=== PATIENT | female | born 1935 | race Caucasian/White ===

== ENCOUNTER 2017-08-02 08:47 | Emergency (ER) | payer MEDICARE, OTHER ==
[~2017-08-02] VITALS: Ht 152.4 cm; Wt 59.0 kg
[~2017-08-02 08:47] MED LIST: ANTIVERT25 MG PO; ASMANEX220 MC2 INH; AUGMENTIN 875-1 EACH PO; AZITHROMYCIN 2250 MG; BISOPROLOL FUMAR5 MG PO; CARAFATE 1 GM TA1 G1 PO; CARAFATE 11 GM/10 M1 PO; CEFUROXIME250 MG PO; CLOPIDOGREL75 MG PO; COLACE100 MG PO; DOXYCYCLINE 10100 MG PO; FENTANYL PA50 MCG/HR TOP; FENTANYL PATCH75 MCG TRANSDERM; FLONASE 0.05%50 MCG NASAL; IRON325 PO; KLOR-CON 1010 MEQ PO; LASIX 20 MG TAB20 MG PO; LEVALBUTER1.25 MG/0. INH; LEVAQUIN 250 M250 MG PO; LYRICA 50 MG50 MG PO; MEDROL4 MG PO; METHOTREXATE 22.5 MG PO; NEXIUM 24HR20 M1 PO; NITROGLYCERIN0.4 MG SUBLING; NYSTATIN 1100000 U/M SW&SWALLOW; OMEPRAZOLE 20 M20 M1 PO; ORAJEL PO; OXYCODONE HCL 55 MG PO; PANTOPRAZOLE SO40 M1 PO; PEPCID20 MG PO; PHENERGAN 25 MG25 M1 PO; PLAVIX 75 MG TA75 M1 PO; POTASSIUM20 PO; PREDNISONE 10 M10 MG PO; SYNTHROID100 MCG PO; TRAMADOL 50 MG50 MG PO; TRIAMTERENE-HC1 EAC1 PO; ULTRAM50 MG PO; VALIUM10 MG PO; VALIUM5 MG PO; VOLTAREN GEL 1100 G2 TOP; XOPENEX 0.63 MG/3 M1 INH; ZANTAC300 MG PO; ZETIA10 MG PO
[2017-08-02] MEDS ORDERED: TART CHERRY CA1 EACH PO (09:13)
[2017-08-02] MEDS ORDERED: COLACE100 MG PO (09:13)
[2017-08-02] MEDS ORDERED: FUSION CAPSULE1 EACH PO (09:14)
[2017-08-02] MEDS ORDERED: METHOTREXATE 22.5 MG PO (09:14)
[2017-08-02] MEDS ORDERED: LIDODERM1 EACH TRANSDERM (10:37)
[2017-08-02 10:54] VITALS: BP 138/50
== END 2017-08-02 10:55 | disposition home or self-care (01) ==
LOC: M.ERS 08:47
DX: G89.29 Other chronic pain (principal); S22.050A Wedge compression fracture of T5-T6 vertebra, initial encounter for closed fracture; M06.9 Rheumatoid arthritis, unspecified; K21.9 Gastro-esophageal reflux disease without esophagitis; M79.7 Fibromyalgia; J45.909 Unspecified asthma, uncomplicated; K59.09 Other constipation; W18.39XA Other fall on same level, initial encounter; Y93.89 Activity, other specified; Y92.89 Other specified places as the place of occurrence of the external cause; Y99.8 Other external cause status

== ENCOUNTER 2017-08-20 20:41 | Inpatient (IN) | payer MEDICARE, OTHER ==
[~2017-08-20] VITALS: Ht 152.4 cm; Wt 47.2 kg
[~2017-08-20 20:41] MED LIST changes: +FUSION CAPSULE1 EACH PO; +LIDODERM1 EACH TRANSDERM; +TART CHERRY CA1 EACH PO
[2017-08-20 21:09] VITALS: BP 171/72
[2017-08-20 21:15] LABS: HEMOGLOBIN 9.4 gm/dL (12.0-15.0); MCH 19.4 pg (26.0-34.0); MCHC 28.5 g/dL (28.0-37.0); MCV 68.1 fL (80.0-100.0); NUCLEATED RBCS 0 /100WBC; PLATELET COUNT* 384 thou/uL (150-400); RBC 4.85 mil/uL (4.20-5.00); RDW-CV 19.8 % (10.5-14.5); WBC 17.7 thou/uL (4.0-11.0)
[2017-08-20 21:17] LABS: ANION GAP 10 mmol/L (7-16); BUN 25 mg/dL (7-18); CALCIUM 8.5 mg/dL (8.5-10.1); CHLORIDE 102 mmol/L (98-107); CO2 26 mmol/L (21-32); CREATININE 1.4 mg/dL (0.6-1.3); GLUCOSE 164 mg/dL (70-99); POTASSIUM 4.5 mmol/L (3.5-5.1); SODIUM 138 mmol/L (136-145)
[2017-08-20 21:21] LABS: INR 1.1; PROTIME 10.7 Seconds (9.20-11.50)
[2017-08-20 21:22] LABS: POC CA IONIZED 4.4 mg/dL (4.5-5.3); POC CREATININE 1.1 mg/dL (0.6-1.3); POC HEMOGLOBIN 11.6 g/dL (12.0-17.0); POC POTASSIUM 4.2 mmol/L (3.5-4.9)
[2017-08-20 21:28] LABS: ALBUMIN 3.5 g/dL (3.4-5.0); ALKALINE PHOSPHATASE 65 U/L (46-116); NT-PRO BRAIN NAT PEPTIDE 1460 pg/mL (<300); SGOT 17 U/L (15-37); SGPT 22 U/L (30-65); TOTAL BILIRUBIN 0.3 mg/dL (<0.1-1.0); TOTAL PROTEIN 7.5 g/dL (6.4-8.2); TROPONIN-I LEVEL <0.06 ng/mL (<0.06)
[2017-08-20 21:37] LABS: ABSOLUTE LYMPHOCYTES 1.8 thou/uL (0.8-5.3); ABSOLUTE MONOCYTES 0.5 thou/uL (0.0-1.2); ABSOLUTE NEUTROPHILS 15.4 thou/uL (1.6-8.1)
[2017-08-20 21:38] LABS: ANISOCYTOSIS 1+; MICROCYTES 2+; PLATELET ESTIMATE ADEQUATE
[2017-08-20 21:39] LABS: HYPOCHROMASIA 2+
[2017-08-20 21:50] LABS: INFLUENZA A ANTIGEN None Detected (None Detect)
[2017-08-20 22:40] LABS: URINE BILIRUBIN NEGATIVE (Negative); URINE BLOOD TRACE (Negative); URINE CLARITY CLEAR; URINE COLOR YELLOW; URINE GLUCOSE-RANDOM NEGATIVE (Negative); URINE KETONES NEGATIVE (Negative); URINE LEUKOCYTES-REFLEX NEGATIVE (Negative); URINE NITRITE-REFLEX NEGATIVE (Negative); URINE PROTEIN NEGATIVE (Negative); URINE SPECIFIC GRAVITY <= 1.005 (1.005-1.030); URINE UROBILINOGEN 0.2 E.U./dl (0.2-1.0)
[2017-08-21] VITALS (8 sets, daily range): BP systolic 117–137; BP diastolic 55–69
[2017-08-21 04:35] LABS: ABSOLUTE BASOPHILS 0.1 thou/uL (0.0-0.2); ABSOLUTE LYMPHOCYTES 2.1 thou/uL (0.8-5.3); ABSOLUTE MONOCYTES 0.9 thou/uL (0.0-1.2); ABSOLUTE NEUTROPHILS 11.6 thou/uL (1.6-8.1); BASOPHILS 0.4 %; EOSINOPHILS 0.3 %; HEMOGLOBIN 8.4 gm/dL (12.0-15.0); LYMPHOCYTES 14.3 %; MCH 19.7 pg (26.0-34.0); MCHC 29.1 g/dL (28.0-37.0); MCV 67.8 fL (80.0-100.0); MPV 7.8 fl. (7.2-11.1); NUCLEATED RBCS 0 /100WBC; PLATELET COUNT* 344 thou/uL (150-400); RBC 4.28 mil/uL (4.20-5.00); RDW-CV 20.4 % (10.5-14.5); WBC 14.7 thou/uL (4.0-11.0)
[2017-08-21 04:54] LABS: ALBUMIN 3.1 g/dL (3.4-5.0); CALCIUM 8.2 mg/dL (8.5-10.1); CREATININE 1.1 mg/dL (0.6-1.3); POTASSIUM 4.1 mmol/L (3.5-5.1); TOTAL BILIRUBIN 0.2 mg/dL (<0.1-1.0); TOTAL PROTEIN 6.5 g/dL (6.4-8.2)
[2017-08-21 06:05] LABS: ANISOCYTOSIS 2+; HYPOCHROMASIA 2+
[2017-08-21 06:06] LABS: MACROCYTES Occasional; MICROCYTES 2+; POLYCHROMASIA Occasional
[2017-08-21 06:12] LABS: TARGET CELLS 1+; TEARDROPS 1+
[2017-08-21] MEDS ORDERED: VALIUM5 MG PO (08:43)
[2017-08-21] MEDS ORDERED: TYLENOL325 MG PO (08:44)
[2017-08-21] MEDS ORDERED: COLACE100 MG PO (09:13)
[2017-08-21 12:56] LABS: CALCIUM 8.2 mg/dL (8.5-10.1); CREATININE 1.1 mg/dL (0.6-1.3); POTASSIUM 3.7 mmol/L (3.5-5.1); TOTAL BILIRUBIN 0.2 mg/dL (<0.1-1.0); TOTAL PROTEIN 6.8 g/dL (6.4-8.2)
--- NOTE | 2017-08-21 15:54 | EKG ---
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 : 1935 Requested By: Sarah Mireles Order Number: [id number] MD: Julio C Love Measurements Intervals [place] Rate: 92 P: 25 MO: 152 QRS: -29 QRSD: 86 T: 31 QT: 369 QTc: 457 Interpretive Statements Sinus rhythm Low voltage, precordial leads RSR' in V1 or V2, right VCD LVH by voltage Anterior Q waves, possibly due to LVH Compared to ECG 05/21/2017 12:37:22 Low QRS voltage now present RSR' in V1 or V2 now present T-wave abnormality no longer present Electronically Signed On 08-21-2017 15:54:10 FUR STRETCHER by Julio C Love [email or web address] <ELECTRONICALLY SIGNED> By: Julio C Love MD, [facility] 08/21/17 1554 26 26 Julio C Love MD, [facility] /EPI
--- NOTE | 2017-08-21 16:57 | 2DMMODE ---
[place] [address] 2 D/M-MODE ECHOCARDIOGRAM Name: HOSSEIN REDD Room: [address] IN [facility]#: [id number] Admission: 08/20/17 Attend Phys: Macarena Alvarado, Discharge: Date of : 33 Date of Service: 08/21/17 1657 Report #: [id number] THIS REPORT FOR: //name// APPROVED REPORT Study performed: 08/21/2017 13:50:06 EXAM: Comprehensive 2D, Doppler, and color-flow Echocardiogram Patient Location: In-Patient Room #: [facility] Status: routine BSA: 1.57 HR: 70 bpm BP: 134/64 mmHg Rhythm: NSR Other Information Study Quality: Good Indications CVA/TIA Echo Enhancing Agent Indication: Rule out Shunt Agent(s) / Amount(s) Used: Agitated Saline 10 cc 2D Dimensions LVEF(%): 79.20 (>50%) IVSd: 9.97 (7-11mm) LVOT Diam: 17.25 (18-24mm) LVDd: 26.45 mm PWd: 9.20 (7-11mm) Ascending Ao: 27.52 (22-36mm) LVDs: 14.30 (25-40mm) Aortic Root: 33.57 mm Vora's LVEF: 79.20 % Volumes Left Atrial Volume (Systole) LA ESV Index: 40.10 mL/m2 Aortic Valve AoV Peak Som.: 1.40 m/s AO Peak Gr.: 7.83 mmHg LVOT Max P.43 mmHg AO Mean Gr.: 4.01 mmHg LVOT Mean P.74 mmHg LVOT Max V: 1.27 m/s AO V2 VTI: 27.27 cm LVOT Mean V: 0.75 m/[place] [address] 2 D/M-MODE ECHOCARDIOGRAM Name: HOSSEIN REDD Room: [address] IN [facility]#: [id number] Admission: 08/20/17 Attend Phys: Macarena Alvarado, Discharge: Date of : 33 Date of Service: 08/21/17 1657 Report #: [id number] KINA (VTI): 2.36 cm2 LVOT V1 VTI: 27.50 cm Mitral Valve E/A Ratio: 1.26 MV Decel. Time: 180.26 ms MV E Max Som.: 1.46 m/s MV PHT: 52.28 ms MVA (PHT): 4.21 cm2 TDI E/Lateral E': 18.25 E/Medial E': 14.60 Medial E' Som.: 0.10 m/s Lateral E' Som.: 0.08 m/s Pulmonary Valve PV Peak Som.: 1.07 m/s PV Peak Gr.: 4.60 mmHg Tricuspid Valve TR Peak Gr.: 31.34 mmHg RVSP: 36.00 mmHg Left Ventricle The left ventricle is normal size. There is normal LV segmental wall motion. There is normal left ventricular wall thickness. Left ventricular systolic function is normal. The left ventricular ejection fraction is within the normal range. LVEF is 60%. The left ventricular diastolic function is normal. Right Ventricle The right ventricle is normal size. The right ventricular systolic function is normal. Atria Left atrium is moderately dilated. Interatrial septum is intact without evidence of ASD or PFO. The right atrium size is normal. Aortic Valve Mild aortic valve sclerosis. No aortic regurgitation is present. There is no aortic valvular stenosis. Mitral Valve There is mitral annular calcification. Mild to moderate mitral regurgitation. No evidence of mitral valve stenosis. Tricuspid Valve The tricuspid valve is normal in structure[place] [address] 2 D/M-MODE ECHOCARDIOGRAM Name: HOSSEIN REDD Room: [address] IN [facility]#: [id number] Admission: 08/20/17 Attend Phys: Macarena Alvarado, Discharge: Date of : 33 Date of Service: 08/21/17 1657 Report #: [id number] regurgitation. The RVSP is 35-40 mmHg. Pulmonic Valve The pulmonary valve is normal in structure. There is no pulmonic valvular regurgitation. Great Vessels The aortic root is normal in size. IVC is normal in size and collapses with >50% inspiration Pericardium There is no pericardial effusion. <Conclusion> The left ventricle is normal size. There is normal left ventricular wall thickness. Left ventricular systolic function is normal. The left ventricular ejection fraction is within the normal range. The left ventricular diastolic function is normal. The right ventricle is normal size. Left atrium is moderately dilated. Mild aortic valve sclerosis. No aortic regurgitation is present. There is no aortic valvular stenosis. There is mitral annular calcification. Mild to moderate mitral regurgitation. No evidence of mitral valve stenosis. The tricuspid valve is normal in structure. Trace tricuspid regurgitation. The RVSP is 35-40 mmHg. IVC is normal in size and collapses with >50% inspiration There is no pericardial effusion. There is normal LV segmental wall motion. Interatrial septum is intact without evidence of ASD or PFO. LVEF is 60%. <ELECTRONICALLY SIGNED> By: Julio C Love MD, FACC 08/21/171656 56 56 Julio C Love MD, FACC /INF
--- NOTE | 2017-08-21 17:33 | CON ---
[address] [address] CONSULTATION Name: HOSSEIN REDD Room: [address] IN [facility]#: [id number] Admission: 08/20/17 Attend Phys: Macarena Alvarado MD Discharge: Date of : 34 Report #: [id number] THIS REPORT FOR: //name// CC: ROMARIO Alvarado DATE OF SERVICE: 08/21/2017 HISTORY OF PRESENT ILLNESS: This is an 82-year-old female patient who does not think much happened yesterday or in the last few days. That history is different than what is there in the records. She was apparently admitted with blurred vision and some headaches and slurred speech. They also had noticed some right facial droop. She does not remember any of those things. She indicated she was just not feeling well. She is admitted with flu-like symptoms and she was worked up for that during her recent admission. She denies that she is having any memory disturbances associated with this. She declined a CT scan with contrast because she does not want any dye. She is scheduled for MRI. REVIEW OF SYSTEMS: Indicate that she was admitted recently with flu-like symptoms. She has a history of back pain. She indicates she was worked up at [facility] with MRIs. It is not sure what they found, but she has taken multiple medications including Tylenol and tramadol. She also gives a history that she has rheumatoid arthritis and fibromyalgia. She does have a history of coronary artery disease, thyroid problem, GI bleeds. She denies any prior history of any definite stroke. Presently, she is still complaining of back pain, but is not complaining of any other symptoms, which she has complained previously. A 14-point review of system was otherwise noncontributory. PAST MEDICAL HISTORY: Negative for any stroke according to the patient. FAMILY HISTORY: Negative for early age strokes. SOCIAL HISTORY: She denies the use of tobacco. PHYSICAL EXAMINATION: Indicate she is alert. She is responsive. She is oriented. Her speech on clinical examination looks within normal limits. Her memory and fund of knowledge is at her baseline. Cranial nerve examination 2-12 indicate that she did not give a very good effort for the visual field examination or fundus examinations and I need to do it again sometime, but does not look like she has any marked abnormality in rest of the cranial nerve examination. She has a symmetrical strength, sensation, reflexes and tone in all 4 extremities. There is no carotid bruit. There is no cerebellar sign. I could not look at the patient's fundus because she could not cooperate very well. Cardiac examination does not appear to be showing any abnormality. She does not appear to be in any respiratory difficulty or [place] [address] CONSULTATION Name: HOSSEIN REDD Room: [address] IN [facility]#: [id number] Admission: 08/20/17 Attend Phys: Macarena Alvarado MD Discharge: Date of : 34 Report #: [id number] does not have any edema, cyanosis or jaundice. Pulses are somewhat difficult to feel, but she does not have any evidence of vascular insufficiency. Blood pressure is 134/64, respiration is 16, pulse is 79, temperature is 98.4. Her white count is 14.7 and she does have a decreased MCV as well as anemia. She did have a CT scan of the head, which was reviewed and that appear unremarkable for any acute changes. IMPRESSION: Symptoms suggestive of transient ischemic attack in this patient. It is difficult to tell because the patient is denying the symptoms. A lot of symptoms may be because of the patient's multiple underlying conditions including anemia, flu-like symptoms, etc., but she did have focality to her symptoms and therefore it is reasonable to work this patient up for any ischemic changes. RECOMMENDATIONS: 1. MRI of the brain is already ordered and we will see what this say. 2. We will go ahead and check her for her sed rate as the last sed rate was high and she did complain of some headache. 3. She needs the management of multiple systemic problems, which may be contributing to at least her generalized symptoms. I discussed all of it with the patient and the patient wants to follow this plan and we will do that. <ELECTRONICALLY SIGNED> By: Tomas Winn MD 08/21/17 1733 0935 [id number] Winn MD /nt
[2017-08-22 02:08] LABS: GLYCOHEMOGLOBIN (HGB A1C) 5.5 % (4.8-5.6)
[2017-08-22 04:00] VITALS: BP 116/48
[2017-08-22 05:37] LABS: ABSOLUTE BASOPHILS 0.1 thou/uL (0.0-0.2); ABSOLUTE EOSINOPHILS 0.3 thou/uL (0.0-0.7); ABSOLUTE LYMPHOCYTES 2.6 thou/uL (0.8-5.3); ABSOLUTE MONOCYTES 0.7 thou/uL (0.0-1.2); ABSOLUTE NEUTROPHILS 7.2 thou/uL (1.6-8.1); BASOPHILS 0.6 %; EOSINOPHILS 2.5 %; HEMATOCRIT 29.1 % (37.0-47.0); HEMOGLOBIN 8.7 gm/dL (12.0-15.0); LYMPHOCYTES 23.6 %; MCHC 29.9 g/dL (28.0-37.0); MONOCYTES 6.2 %; MPV 8.1 fl. (7.2-11.1); NUCLEATED RBCS 0 /100WBC; PLATELET COUNT* 341 thou/uL (150-400); POLYS 67.1 %; RBC 4.34 mil/uL (4.20-5.00); RDW-CV 20.4 % (10.5-14.5); WBC 10.8 thou/uL (4.0-11.0)
[2017-08-22 05:44] LABS: ANION GAP 8 mmol/L (7-16); BUN 24 mg/dL (7-18); CALCIUM 8.5 mg/dL (8.5-10.1); CHLORIDE 105 mmol/L (98-107); CHOLESTEROL 244 mg/dL (<200); CO2 30 mmol/L (21-32); CREATININE 1.2 mg/dL (0.6-1.3); GLUCOSE 94 mg/dL (70-99); HDL CHOLESTEROL 51 mg/dL (>40); LDL CHOLESTEROL 132 mg/dL (<100); POTASSIUM 4.2 mmol/L (3.5-5.1); SODIUM 143 mmol/L (136-145); TC:HDL 4.8 Ratio (Not establshd); TRIGLYCERIDE 305 mg/dL (<150); VLDL 61 mg/dL (<40)
[2017-08-22 06:03] LABS: SERUM ASSESSMENT Clear
[2017-08-22 06:29] LABS: HYPOCHROMASIA 2+; MICROCYTES 2+; OVALOCYTES 1+; PLATELET ESTIMATE ADEQUATE
[2017-08-22 06:30] LABS: ANISOCYTOSIS 2+; POIKILOCYTOSIS 1+
[2017-08-22 07:05] LABS: ESR (SEDRATE) 30 mm/hr (0-30)
[2017-08-22 08:00] VITALS: BP 145/70
[2017-08-22 11:33] VITALS: BP 126/73
[2017-08-22 15:33] VITALS: BP 132/66
[2017-08-22 20:00] VITALS: BP 125/91
[2017-08-23] VITALS: BP 92/52
[2017-08-23 04:00] VITALS: BP 109/61
[2017-08-23 08:00] VITALS: BP 137/75
[2017-08-23 11:55] VITALS: BP 137/75
[2017-08-23] MEDS ORDERED: ATORVASTATIN CA40 MG PO (12:55)
[2017-08-23] MEDS ORDERED: LEVAQUIN 500 M500 M2 PO (12:56)
[2017-08-23] MEDS ORDERED: ASPIRIN81 M2 PO (12:57)
[2017-08-23 13:05] VITALS: BP 137/75
== END 2017-08-23 14:17 | disposition home health service (06) | DRG 177 ==
LOC: M.ERS 20:41 → M.TBA-ER 22:45 → M.2W 22:45
PROVIDERS: Emergency Medicine; Internal Medicine; Psychiatry & Neurology Neuromuscular Medicine; ADMIT Internal Medicine
DX: J69.0 Pneumonitis due to inhalation of food and vomit (principal); I63.9 Cerebral infarction, unspecified; G93.40 Encephalopathy, unspecified; R65.10 Systemic inflammatory response syndrome (SIRS) of non-infectious origin without acute organ dysfunction; J10.00 Influenza due to other identified influenza virus with unspecified type of pneumonia; J45.909 Unspecified asthma, uncomplicated; M06.9 Rheumatoid arthritis, unspecified; K59.09 Other constipation; K21.9 Gastro-esophageal reflux disease without esophagitis; M79.7 Fibromyalgia; E89.0 Postprocedural hypothyroidism; K74.60 Unspecified cirrhosis of liver; I25.10 Atherosclerotic heart disease of native coronary artery without angina pectoris; D64.9 Anemia, unspecified; Z96.642 Presence of left artificial hip joint; M19.90 Unspecified osteoarthritis, unspecified site; K44.9 Diaphragmatic hernia without obstruction or gangrene; Z95.5 Presence of coronary angioplasty implant and graft; I25.2 Old myocardial infarction; Z79.899 Other long term (current) drug therapy; Z88.6 Allergy status to analgesic agent; Z88.8 Allergy status to other drugs, medicaments and biological substances; Z88.0 Allergy status to penicillin; Z88.2 Allergy status to sulfonamides

== ENCOUNTER 2017-10-10 14:04 | Inpatient (IN) | payer MEDICARE, OTHER ==
[~2017-10-10] VITALS: Ht 149.9 cm; Wt 63.0 kg
[~2017-10-10 14:04] MED LIST changes: +ASPIRIN81 M2 PO; +ATORVASTATIN CA40 MG PO; +LEVAQUIN 500 M500 M2 PO; +TYLENOL325 MG PO
[2017-10-10 15:10] VITALS: BP 107/53
[2017-10-10 16:23] LABS: HEMATOCRIT 22.4 % (37.0-47.0); MCH 19.8 pg (26.0-34.0); MCHC 28.6 g/dL (28.0-37.0); MCV 69.2 fL (80.0-100.0); MPV 8.3 fl. (7.2-11.1); NUCLEATED RBCS 0 /100WBC; PLATELET COUNT* 264 thou/uL (150-400); RBC 3.24 mil/uL (4.20-5.00); RDW-CV 20.5 % (10.5-14.5); WBC 17.7 thou/uL (4.0-11.0)
[2017-10-10 16:27] LABS: HEMOGLOBIN 6.4 gm/dL (12.0-15.0)
[2017-10-10 16:28] VITALS: BP 100/47
[2017-10-10 16:33] LABS: ALBUMIN 2.4 g/dL (3.4-5.0); CREATININE 1.4 mg/dL (0.6-1.3); MAGNESIUM 1.7 mg/dL (1.8-2.4); POTASSIUM 4.2 mmol/L (3.5-5.1); TOTAL BILIRUBIN 0.1 mg/dL (<0.1-1.0); TOTAL PROTEIN 5.9 g/dL (6.4-8.2)
[2017-10-10 16:55] LABS: ABSOLUTE LYMPHOCYTES 2.5 thou/uL (0.8-5.3); ABSOLUTE MONOCYTES 0.2 thou/uL (0.0-1.2); OVALOCYTES Occasional
[2017-10-10 16:56] LABS: ANISOCYTOSIS 2+; MICROCYTES 2+; POLYCHROMASIA Occasional
[2017-10-10 16:57] LABS: PLATELET ESTIMATE ADEQUATE
[2017-10-10 16:58] LABS: HYPOCHROMASIA 2+
[2017-10-10 17:29] VITALS: BP 101/48
[2017-10-10 18:00] VITALS: BP 100/47; BP 102/35; BP 107/53; BP 113/43; BP 98/53
[2017-10-10 18:06] LABS: BE -4.3 mmol/L (-2 to +3); HCO3 21.2 mmol/L (22.0-26.0); PCO2 40.4 mmHg (35.0-45.0); pH 7.337 (7.340-7.450)
[2017-10-10 18:47] VITALS: BP 104/36
[2017-10-11] VITALS (12 sets, daily range): BP systolic 123–134; BP diastolic 58–84
[2017-10-11 04:27] LABS: HEMATOCRIT 25.8 % (37.0-47.0); HEMOGLOBIN 7.8 gm/dL (12.0-15.0); MCH 21.5 pg (26.0-34.0); MCHC 30.3 g/dL (28.0-37.0); MPV 8.2 fl. (7.2-11.1); RBC 3.64 mil/uL (4.20-5.00); RDW-CV 21.1 % (10.5-14.5); WBC 16.2 thou/uL (4.0-11.0)
[2017-10-11 04:29] LABS: CALCIUM 7.1 mg/dL (8.5-10.1); MAGNESIUM 1.6 mg/dL (1.8-2.4); POTASSIUM 4.5 mmol/L (3.5-5.1)
[2017-10-12] VITALS: BP 136/61
[2017-10-12 03:57] VITALS: BP 133/61
[2017-10-12 07:42] LABS: HEMATOCRIT 25.3 % (37.0-47.0); HEMOGLOBIN 7.7 gm/dL (12.0-15.0); MCH 21.5 pg (26.0-34.0); MCHC 30.3 g/dL (28.0-37.0); MPV 8.4 fl. (7.2-11.1); NUCLEATED RBCS 0 /100WBC; PLATELET COUNT* 263 thou/uL (150-400); RBC 3.56 mil/uL (4.20-5.00); RDW-CV 21.8 % (10.5-14.5); WBC 9.8 thou/uL (4.0-11.0)
[2017-10-12 07:56] LABS: ALBUMIN 2.5 g/dL (3.4-5.0); CALCIUM 7.7 mg/dL (8.5-10.1); POTASSIUM 4.2 mmol/L (3.5-5.1); TOTAL BILIRUBIN 0.1 mg/dL (<0.1-1.0); TOTAL PROTEIN 6.4 g/dL (6.4-8.2)
[2017-10-12 08:06] LABS: ABSOLUTE LYMPHOCYTES 1.1 thou/uL (0.8-5.3); ABSOLUTE NEUTROPHILS 8.7 thou/uL (1.6-8.1); ANISOCYTOSIS 1+; PLATELET ESTIMATE ADEQUATE; POIKILOCYTOSIS 1+
[2017-10-12 12:00] VITALS: BP 132/71
[2017-10-12 12:15] VITALS: BP 133/61
[2017-10-12 14:09] VITALS: BP 133/61
--- NOTE | 2017-10-30 15:01 | CON ---
[address] [address] CONSULTATION Name: HOSSEIN REDD Room: [address] IN .R.#: [id number] Admission: 10/10/17 Attend Phys: Macarena Alvarado MD Discharge: 10/12/17 Date of : 34 Report #: [id number] THIS REPORT FOR: //name// CC: ROMARIO Alvarado DICTATED BY: Shavonne Garcia [facility] DATE OF SERVICE: 10/11/2017 Please note at the time of this dictation, the patient was seen and physically examined by myself. REASON FOR CONSULTATION: Acute anemia, history of gastric ulcers. HISTORY OF PRESENT ILLNESS: This is an 82-year-old female who was transferred from the [address] for increasing shortness of air, cough, fever. She was diagnosed there with pneumonia, sepsis and possible GI bleed. The patient states that she has been scoped on 2 different occasions down there at the [address] Jennings. She states the last one was done here recently and she states that her ulcers were healed. However, she did start taking an aspirin here recently due to her bad arthritic pain as well. She has never had a colonoscopy done she states. The patient states she has been having this epigastric pain that radiates up into her chest and over to the right and it has been intermittent. She denies any nausea or vomiting and she has not noticed any change in her stool color recently. She states it is always dark because she takes an iron supplement. She states with her stomach ulcers in the past has required blood transfusions. The patient did get 1 unit of blood upon arrival here to the unit. Hemoglobin at [address] was 7.4. When she reached the ER, she was 6.4. ALLERGIES: MORPHINE, CODEINE, PENICILLIN, SULFA, and PROCAN. MEDICATIONS: From home include Voltaren gel, Antivert, Lyrica, omeprazole, Phenergan, tart gilbert, Valium, Tylenol, Colace, Lipitor, Levaquin, aspirin, bisoprolol, Lasix, Synthroid, potassium chloride, prednisone, Duragesic and tramadol. PAST MEDICAL HISTORY: Rheumatoid arthritis, chronic constipation, GERD, history of small-bowel obstruction, fibromyalgia, told she had cirrhosis of the liver, asthma and history of a GI bleed. PAST SURGICAL HISTORY: She has had a CABG in 2001, cardiac stents placed, multiple abdominal hernia repairs [place] [address] CONSULTATION Name: HOSSEIN REDD Room: [address]#: [id number] Admission: 10/10/17 Attend Phys: Macarena Alvarado MD Discharge: 10/12/17 Date of : 34 Report #: [id number] FAMILY HISTORY: Noncontributory. SOCIAL HISTORY: Denies any alcohol, tobacco or illegal drug use at this time. REVIEW OF SYSTEMS: Twelve-point review of systems is essentially negative except what is mentioned in the HPI. PHYSICAL EXAMINATION: VITAL SIGNS: Temperature 36.4, pulse 83, respirations 17, blood pressure 126/61. HEART: Regular rate and rhythm. LUNGS: Diminished with few crackles in the bases. ABDOMEN: Soft, positive bowel sounds in all 4 quadrants with epigastric tenderness noted to palpation. LABORATORY DATA: Hemoglobin after a unit of blood is 7.8, hematocrit 25.8, white count is 16.2, platelets 260. Sodium 145, potassium 4.5, chloride 113, CO2 of 24, BUN is 21, creatinine is 1, it is down from 26 on her BUN, glucose is 143 and GFR is 53. Iron is 10, iron sat is 4, ferritin 18, TIBC 282 and her B12 is 478. IMPRESSION: 1. Epigastric pain. 2. History of gastric ulcers. She was scoped couple of months ago at [address] [facility] [address] Jennings. 3. Acute anemia. She got 1 unit. 4. Pneumonia. 5. Leukocytosis. PLAN: 1. EGD today with Dr. Jennings. 2. Continue her Protonix drip. 3. Further recommendations to be made after the procedure. Thank you for allowing us to participate in this patient's care. Please do not hesitate to call with any questions in regard to this consult. ADDENDUM I have personally seen and examined the patient and reviewed labs and imaging studies. The patient with history of peptic ulcer disease who had been scoped by myself recently. She presents with anemia requiring blood transfusion. She also had leukocytosis and pneumonia. We will go ahead and perform an [address] [address] CONSULTATION Name: HOSSEIN REDD Room: [address] IN ..#: [id number] Admission: 10/10/17 Attend Phys: Macarena Alvarado MD Discharge: 10/12/17 Date of : 34 Report #: [id number] endoscopy to further evaluate her peptic ulcer disease. The patient is agreeable with plan. <ELECTRONICALLY SIGNED> By: Haresh Jennings MD 10/30/17 1501 1204 1414Haresh Jennings MD /nt
--- NOTE | 2017-10-30 15:01 | CON ---
[address] [address] CONSULTATION Name: HOSSEIN REDD Room: [address] IN M.R.#: [id number] Admission: 10/10/17 Attend Phys: Macarena Alvarado MD Discharge: 10/12/17 Date of : 34 Report #: [id number] THIS REPORT FOR: //name// CC: ROMARIO Alvarado DATE OF SERVICE: 10/11/2017 ADDENDUM I have personally seen and examined the patient and reviewed labs and imaging studies. The patient with history of peptic ulcer disease who had been scoped by myself recently. She presents with anemia requiring blood transfusion. She also had leukocytosis and pneumonia. We will go ahead and perform an upper endoscopy to further evaluate her peptic ulcer disease. The patient is agreeable with plan. <ELECTRONICALLY SIGNED> By: Haresh Jennings MD 10/30/17 1501 1323 1523Haresh Jennings MD /nt
== END 2017-10-12 14:53 | disposition home health service (06) | DRG 871 ==
LOC: M.ICU 14:04 → M.2W 10-11 20:23
PROVIDERS: Internal Medicine; ADMIT Internal Medicine
PROC: 30233N1 Transfusion of Nonautologous Red Blood Cells into Peripheral Vein, Percutaneous Approach (ICD-10-PCS; principal; 2017-10-10)
PROC: 0DJ08ZZ Inspection of Upper Intestinal Tract, Via Natural or Artificial Opening Endoscopic (ICD-10-PCS; 2017-10-11)
DX: A41.9 Sepsis, unspecified organism (principal); J69.0 Pneumonitis due to inhalation of food and vomit; J96.01 Acute respiratory failure with hypoxia; K92.2 Gastrointestinal hemorrhage, unspecified; K59.09 Other constipation; M06.9 Rheumatoid arthritis, unspecified; K21.9 Gastro-esophageal reflux disease without esophagitis; K74.60 Unspecified cirrhosis of liver; Z96.642 Presence of left artificial hip joint; D64.9 Anemia, unspecified; J45.909 Unspecified asthma, uncomplicated; K44.9 Diaphragmatic hernia without obstruction or gangrene; Z86.73 Personal history of transient ischemic attack (TIA), and cerebral infarction without residual deficits; Z88.6 Allergy status to analgesic agent; Z88.0 Allergy status to penicillin; Z88.2 Allergy status to sulfonamides; Z88.8 Allergy status to other drugs, medicaments and biological substances; Z95.1 Presence of aortocoronary bypass graft; Z95.5 Presence of coronary angioplasty implant and graft; Z87.11 Personal history of peptic ulcer disease; I25.2 Old myocardial infarction

== ENCOUNTER 2018-01-21 13:25 | Inpatient (IN) | payer MEDICARE, OTHER ==
[~2018-01-21] VITALS: Ht 152.4 cm; Wt 59.4 kg
[2018-01-21 13:27] VITALS: BP 175/87
[2018-01-21] MEDS ORDERED: KLOR-CON 1010 MEQ PO (13:38)
[2018-01-21] MEDS ORDERED: HYDROXYCHLOROQ200 M1 PO (13:41)
[2018-01-21] MEDS ORDERED: SALAGEN5 MG PO (13:41)
[2018-01-21 15:04] LABS: CALCIUM 9.2 mg/dL (8.5-10.1); POTASSIUM 4.1 mmol/L (3.5-5.1)
[2018-01-21 15:05] LABS: ABSOLUTE EOSINOPHILS 0.1 thou/uL (0.0-0.7); ABSOLUTE LYMPHOCYTES 1.6 thou/uL (0.8-5.3); ABSOLUTE MONOCYTES 0.6 thou/uL (0.0-1.2); ABSOLUTE NEUTROPHILS 7.5 thou/uL (1.6-8.1); BASOPHILS 0.4 %; EOSINOPHILS 0.6 %; HEMATOCRIT 41.6 % (37.0-47.0); HEMOGLOBIN 13.1 gm/dL (12.0-15.0); LYMPHOCYTES 16.2 %; MCH 24.4 pg (26.0-34.0); MCHC 31.5 g/dL (28.0-37.0); MCV 77.5 fL (80.0-100.0); MONOCYTES 5.7 %; MPV 8.5 fl. (7.2-11.1); NUCLEATED RBCS 0 /100WBC; PLATELET COUNT* 230 thou/uL (150-400); POLYS 77.1 %; RBC 5.37 mil/uL (4.20-5.00); RDW-CV 18.8 % (10.5-14.5); WBC 9.7 thou/uL (4.0-11.0)
[2018-01-21 15:12] LABS: ALBUMIN 3.7 g/dL (3.4-5.0); TOTAL BILIRUBIN 0.3 mg/dL (<0.1-1.0); TOTAL PROTEIN 7.7 g/dL (6.4-8.2)
[2018-01-21 15:30] LABS: URINE BILIRUBIN NEGATIVE (Negative); URINE BLOOD NEGATIVE (Negative); URINE CLARITY CLEAR; URINE COLOR YELLOW; URINE GLUCOSE-RANDOM NEGATIVE (Negative); URINE KETONES NEGATIVE (Negative); URINE LEUKOCYTES-REFLEX NEGATIVE (Negative); URINE NITRITE-REFLEX NEGATIVE (Negative); URINE PROTEIN NEGATIVE (Negative); URINE SPECIFIC GRAVITY 1.015 (1.005-1.030); URINE UROBILINOGEN 0.2 E.U./dl (0.2-1.0)
[2018-01-21 16:22] VITALS: BP 169/79
--- NOTE | 2018-01-21 18:57 | NUR ---
PATIENT ADM TO FLOOR AT 1645, REPORT TAKEN FROM NATHANIEL IN ER. PATIENT A&OX4, FORGETFUL. ROOM AIR. IV LEFT AC SALINE LOCK. UP WITH ASSISTX1, UNSTEADY GAIT AT TIMES. PATIENT REPORTS PAIN IN NECK FOR PAST 4-5 WEEKS. HAS SEEN PCP AND OTHER ER PHYCISIANS AND UNABLE TO MAKE DX. SINCE PATIENT ADM TO FLOOR. PATIENT HAS COMPLAINED OF PAIN IN HEAD, NECK, FEET, LEGS, AND TRINI AREA. HEATING PAD ORDERED FOR PAIN MANAGEMENT FOR NECK PAIN. ADM ASSESSMENT COMPLETED AND DOCUMENTED. NO OTHER CONCERNS AT THIS TIME. APPROPRIATE AND COOPORATIVE WITH CARE.
[2018-01-21 20:40] VITALS: BP 145/72
[2018-01-22 07:30] VITALS: BP 143/66
--- NOTE | 2018-01-22 08:21 | NUR ---
PATIENT HAS SLEPT WELL THROUGHOUT THE NIGHT WITHOUT ANY ISSUES. PAIN WELL CONTROLLED. MEDICATIONS GIVEN ORDERED AND CHARTED. VSS ON RA. PATIENT DOES WEAR 02 @ 2L AT NIGHT. IV IN LEFT AC-SL. PATIENT INSTRUCTED TO USE CALL LIGHT WHEN NEEDING ASSISTANCE. HOURLY ROUNDS MADE. WILL CONTINUE WITH PLAN OF CARE AND NURSING TO MONITOR.
[2018-01-22 08:43] LABS: CALCIUM 8.7 mg/dL (8.5-10.1); CREATININE 1.1 mg/dL (0.6-1.3); POTASSIUM 4.5 mmol/L (3.5-5.1)
[2018-01-22] MEDS ORDERED: GAVISCON LIQUI355 ML PO (10:33)
--- NOTE | 2018-01-22 13:46 | NUR ---
CM SPOKE TO PATIENT TO DISCUSS HOME SITUATION, DISCHARGE PLANNING, AND TO INFORM OF THE ROLE OF CM. PATIENT ALERT AND ORIENTED. PATIENT RESIDES AT HOME WITH SPOUSE. AFSANEH INFORMS THAT HER DTR CELSO LIVES NEARBY. PATIENT STATES THAT SHE IS INDEPENDENT AT HOME, USES A WALKER FOR MOBILITY, AND A CPAP AT [facility]. PATIENT HAS A HX OF [facility]. CM WILL REMIAN AVAILABLE TO ASSIST AND FOLLOW NEEDED.
--- NOTE | 2018-01-22 15:05 | EKG ---
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 : 1935 Requested By: Mgadalene Larson Order Number: [id number] MD: Kael Jon Measurements Intervals [place] Rate: 65 P: 32 VT: 172 QRS: -23 QRSD: 97 T: 17 QT: 463 QTc: 482 Interpretive Statements Sinus rhythm Probable left ventricular hypertrophy Inferior infarct, old poor r wave progression Compared to ECG 08/20/2017 21:27:56 no change Electronically Signed On 01-22-2018 15:05:05 CDT by Kael Jon [email or web address] <ELECTRONICALLY SIGNED> By: Kael Jon MD, [facility] 01/22/18 1505 1438 1438 Kael Jon MD, [facility] /EPI
[2018-01-22 16:00] VITALS: BP 118/76
--- NOTE | 2018-01-22 19:01 | NUR ---
ALERT AND ORIENTED X4. UP STAND BY ASSIST IN ROOM. IV IS PATENT AND SALINE LOCKED. PAIN BEING MANAGED WITH PO PAIN MEDICATION. DENIES NAUSEA. TOLERATING DIET. ATTENDED PHYSICAL THERAPY THIS SHIFT. VSS ON ROOM AIR. HOURLY ROUNDS HAVE BEEN MAINTAINED THROUGHOUT SHIFT. CALL LIGHT IS WITHIN REACH. NURSING WILL CONTINUE TO MONITOR.
[2018-01-22 20:00] VITALS: BP 148/74
[2018-01-23 04:24] LABS: CALCIUM 8.7 mg/dL (8.5-10.1)
--- NOTE | 2018-01-23 05:37 | NUR ---
PATIENT ALERT AND ORIENTED X4. UP WITH STAND BY ASSIST TO BATHROOM. FENTANYL PATCH APPLIED TO BACK THIS AM. NO BM THIS SHIFT. CPAP ON AT HS. VITALS SIGNS STABLE. WILL CONTINUE TO MONITOR.
[2018-01-23 08:00] VITALS: BP 117/52
[2018-01-23] MEDS ORDERED: GABAPENTIN 100100 MG PO (09:55)
[2018-01-23] MEDS ORDERED: CIPRO500 MG PO (09:55)
[2018-01-23 11:53] VITALS: BP 117/52
--- NOTE | 2018-01-23 12:10 | NUR ---
PT.TO DISCHARGE HOME TODAY WITH HOME HEALTH NURSING. PT.HAS USED [facility] IN THE PAST AND WOULD LIKE TO USE THEM AGAIN. SPOKE TO [facility]TAKE/[facility] AND FAXED ORDERS,FACE SHEET AND FACE TO FACE FORM TO THEM [phone]. THEY WILL START SERVICE TOMORROW AND CALL PT.WITH TIME OF APPT.
[2018-01-23] MEDS ORDERED: MIRALAX17 GM PO (12:50)
[2018-01-23 12:52] VITALS: BP 117/52
--- NOTE | 2018-01-23 13:27 | NUR ---
PT DC'D HOME WITH ALL BELONGINGS. PT ACKNOWLEDGED DC INSTRUCTIONS AND MEDICATIONS. SENT WITH RX. PT DENIED PAIN, UP WITH SBA. IV REMOVED BEFORE DISMISSAL INTACT.
--- NOTE | 2018-02-02 12:17 | CON ---
[address] [address] CONSULTATION Name: HOSSEIN REDD Room: [address]#: [id number] Admission: 01/21/18 Attend Phys: Rena Puri Discharge: 01/23/18 Date of : 34 Report #: [id number] THIS REPORT FOR: //name// CC: ROMARIO KENNEDY Physician staff Regis Gant DATE OF SERVICE: 01/22/2018 HISTORY OF PRESENT ILLNESS: This is an 82-year-old female patient who was evaluated by me for pain behind the right ear. It started about 5 weeks ago. It started spontaneously without trauma. It is a severe pain. She does not know anything, which makes it better or worse. It does spread to the rest of the head. She indicates she did not have any pain like this before. She has tried multiple medications over a period of time without any relief of headache. REVIEW OF SYSTEMS: Positive for rheumatoid arthritis, fibromyalgia, chronic constipation, , coronary artery disease, [place], stents, abdominal hernia, thyroidectomy, liver problems and she had a hip replaced in 2008. At one time, she also had a GI bleed. A 14-point review of system was otherwise mostly unremarkable and she is not complaining of any eye, ENT, cardiac, respiratory, GI, , constitutional, dermatological, hematological, psychiatric, throat, allergic symptom associated with present symptomatology. She does have rheumatoid arthritis pain. She breaks into sweats when this pain happened. It looks like the pain is episodic. PAST MEDICAL HISTORY: Negative for this kind of pain. FAMILY HISTORY: Negative for any early age stroke. SOCIAL HISTORY: She lives with her , was there and he provided some of the history. PHYSICAL EXAMINATION: The patient's examinations indicate she is alert. She is responsive. She can follow simple command. Her speech, concentration, fund of knowledge and memory is at her baseline. Cranial nerve examination 2-12 looks unremarkable. Strength, sensation, reflexes and tone is symmetrical. There is no cerebellar sign. I could not look at the patient's fundus. There is no meningeal sign. There is no thyroid mass. There is no carotid bruit. She is a reasonably well-developed individual who does not have any dysmorphic features of eyes, ears and face. Her vision and hearing looks adequate. Pulses are somewhat difficult to feel. She has no edema, cyanosis or jaundice. Blood pressure is 143/66, respiration is 14, pulse is 62, and temperature is 98.4. LABORATORY DATA: White count is 9.7. Sodium is 139. She did have a CT scan of the head, [place] [address] CONSULTATION Name: HOSSEIN REDD Room: [address]#: [id number] Admission: 01/21/18 Attend Phys: Rena Puri Discharge: 01/23/18 Date of : 33 Report #: [id number] IMPRESSION: This patient does appear to have neuralgia. It maybe auriculotemporal neuralgia. We will try some gabapentin; if that is ineffective, some Tegretol. I think it is desirable to make sure there is no intracranial pathology is going on, especially intracranial sinus thrombosis. She does not believe that there is any contraindication for doing an MRI. We will go ahead and proceed with MRI and MRV as an initial testing. We will decide about the further testing later on. 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 RECOMMENDATIONS: 1. MRI. 2. MRV. 3. Try her with gabapentin. 4. If ineffective, may try to get more workup as well as Tegretol. All of it was discussed with the patient and she wants to proceed with that. Thank you very much for this referral. <ELECTRONICALLY SIGNED> By: Tomas Winn MD 02/02/18 1217 1522 1551Pekta Winn MD /nt
== END 2018-01-23 13:27 | disposition home health service (06) | DRG 74 ==
LOC: M.ERS 13:25 → M.TBA-ER 15:44 → M.ORTHSURG 15:44
PROVIDERS: Nurse Practitioner Family; ADMIT Internal Medicine
DX: G50.8 Other disorders of trigeminal nerve (principal); E86.0 Dehydration; M06.9 Rheumatoid arthritis, unspecified; K21.9 Gastro-esophageal reflux disease without esophagitis; J45.909 Unspecified asthma, uncomplicated; K59.09 Other constipation; I25.10 Atherosclerotic heart disease of native coronary artery without angina pectoris; M79.7 Fibromyalgia; Z96.642 Presence of left artificial hip joint; Z79.82 Long term (current) use of aspirin; Z79.899 Other long term (current) drug therapy; Z88.6 Allergy status to analgesic agent; Z88.0 Allergy status to penicillin; Z88.2 Allergy status to sulfonamides; Z88.8 Allergy status to other drugs, medicaments and biological substances; I25.2 Old myocardial infarction; Z95.1 Presence of aortocoronary bypass graft; Z95.5 Presence of coronary angioplasty implant and graft; Z86.73 Personal history of transient ischemic attack (TIA), and cerebral infarction without residual deficits

== ENCOUNTER 2018-02-02 04:25 | Emergency (ER) | payer MEDICARE, OTHER ==
[~2018-02-02] VITALS: Ht 149.9 cm; Wt 52.2 kg
[~2018-02-02 04:25] MED LIST changes: +CIPRO500 MG PO; +GABAPENTIN 100100 MG PO; +GAVISCON LIQUI355 ML PO; +HYDROXYCHLOROQ200 M1 PO; +MIRALAX17 GM PO; +SALAGEN5 MG PO
[2018-02-02 05:00] LABS: ABSOLUTE EOSINOPHILS 0.2 thou/uL (0.0-0.7); ABSOLUTE LYMPHOCYTES 2.3 thou/uL (0.8-5.3); ABSOLUTE MONOCYTES 0.7 thou/uL (0.0-1.2); BASOPHILS 0.4 %; HEMATOCRIT 41.2 % (37.0-47.0); HEMOGLOBIN 13.3 gm/dL (12.0-15.0); WBC 9.2 thou/uL (4.0-11.0)
[2018-02-02 05:01] LABS: EOSINOPHILS 2.4 %; LYMPHOCYTES 24.6 %; MCH 25.1 pg (26.0-34.0); MCHC 32.2 g/dL (28.0-37.0); MONOCYTES 7.8 %; MPV 8.1 fl. (7.2-11.1); NUCLEATED RBCS 0 /100WBC; PLATELET COUNT* 239 thou/uL (150-400); POLYS 64.8 %; RBC 5.28 mil/uL (4.20-5.00); RDW-CV 18.6 % (10.5-14.5)
[2018-02-02 05:12] LABS: INR 1.1; PROTIME 10.3 Seconds (9.20-11.50)
[2018-02-02 05:36] LABS: SODIUM 139 mmol/L (136-145)
[2018-02-02 05:38] LABS: ALBUMIN 3.3 g/dL (3.4-5.0); ALKALINE PHOSPHATASE 55 U/L (46-116); ANION GAP 7 mmol/L (7-16); BUN 22 mg/dL (7-18); CALCIUM 8.9 mg/dL (8.5-10.1); CHLORIDE 103 mmol/L (98-107); CO2 29 mmol/L (21-32); CREATININE 1.1 mg/dL (0.6-1.3); GLUCOSE 100 mg/dL (70-99); LIPASE 238 U/L (73-393); SGOT 25 U/L (15-37); SGPT 26 U/L (30-65); TOTAL BILIRUBIN 0.2 mg/dL (<0.1-1.0); TOTAL PROTEIN 7.2 g/dL (6.4-8.2)
[2018-02-02 05:39] LABS: NT-PRO BRAIN NAT PEPTIDE 916 pg/mL (<300); TROPONIN-I LEVEL <0.06 ng/mL (<0.06)
[2018-02-02 06:58] LABS: URINE BILIRUBIN NEGATIVE (Negative); URINE BLOOD NEGATIVE (Negative); URINE CLARITY CLEAR; URINE COLOR YELLOW; URINE GLUCOSE-RANDOM NEGATIVE (Negative); URINE KETONES NEGATIVE (Negative); URINE LEUKOCYTES-REFLEX NEGATIVE (Negative); URINE NITRITE-REFLEX NEGATIVE (Negative); URINE PROTEIN NEGATIVE (Negative); URINE UROBILINOGEN 0.2 E.U./dl (0.2-1.0)
[2018-02-02] MEDS ORDERED: ZOFRAN ODT4 M1 PO (08:32)
[2018-02-02 11:29] VITALS: BP 162/68
--- NOTE | 2018-02-02 16:30 | EKG ---
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 : 1935 Requested By: Sarah Mireles Order Number: [id number] MD: Julian Blanco Measurements Intervals [place] Rate: 73 P: 40 RI: 167 QRS: -23 QRSD: 93 T: 17 QT: 430 QTc: 474 Interpretive Statements Sinus rhythm Abnormal R-wave progression, late transition LVH by voltage Inferior infarct old possible Compared to ECG 01/21/2018 14:38:32 Poor R-wave progression no longer present Electronically Signed On 02-02-2018 16:30:37 CDT by Julian Blanco [email or web address] <ELECTRONICALLY SIGNED> By: Julian Blanco MD, [facility] 02/02/18 1630 0429 0429 Julian Blanco MD, [facility] /EPI
== END 2018-02-02 11:30 | disposition home or self-care (01) ==
LOC: M.ERS 04:25
PROVIDERS: Emergency Medicine
DX: R07.9 Chest pain, unspecified (principal); M54.2 Cervicalgia; M06.9 Rheumatoid arthritis, unspecified; K21.9 Gastro-esophageal reflux disease without esophagitis; I25.2 Old myocardial infarction; J45.909 Unspecified asthma, uncomplicated; K74.60 Unspecified cirrhosis of liver; Z95.1 Presence of aortocoronary bypass graft; Z96.642 Presence of left artificial hip joint; Z88.0 Allergy status to penicillin; Z88.2 Allergy status to sulfonamides; Z88.5 Allergy status to narcotic agent; Z88.6 Allergy status to analgesic agent; Z88.8 Allergy status to other drugs, medicaments and biological substances

== ENCOUNTER 2018-09-21 22:59 | Emergency (ER) | payer MEDICARE, OTHER ==
[~2018-09-21] VITALS: Ht 149.9 cm; Wt 47.2 kg
[~2018-09-21 22:59] MED LIST changes: +ZOFRAN ODT4 M1 PO
[2018-09-21] MEDS ORDERED: LYRICA 50 MG50 MG (23:09)
[2018-09-21] MEDS ORDERED: PREDNISONE 5 MG5 M1 (23:10)
[2018-09-21 23:43] LABS: ABSOLUTE EOSINOPHILS 0.2 thou/uL (0.0-0.7); ABSOLUTE LYMPHOCYTES 2.1 thou/uL (0.8-5.3); ABSOLUTE MONOCYTES 0.6 thou/uL (0.0-1.2); ABSOLUTE NEUTROPHILS 5.4 thou/uL (1.6-8.1); BASOPHILS 0.6 %; HEMATOCRIT 35.9 % (37.0-47.0); HEMOGLOBIN 11.5 gm/dL (12.0-15.0); LYMPHOCYTES 25.5 %; MCH 25.8 pg (26.0-34.0); MCV 80.8 fL (80.0-100.0); MONOCYTES 6.8 %; MPV 8.4 fl. (7.2-11.1); NUCLEATED RBCS 0 /100WBC; PLATELET COUNT* 205 thou/uL (150-400); POLYS 65.1 %; RBC 4.45 mil/uL (4.20-5.00); RDW-CV 15.5 % (10.5-14.5); WBC 8.4 thou/uL (4.0-11.0)
[2018-09-21 23:52] LABS: ALBUMIN 2.9 g/dL (3.4-5.0); CALCIUM 7.8 mg/dL (8.5-10.1); CREATININE 1.1 mg/dL (0.6-1.3); POTASSIUM 3.9 mmol/L (3.5-5.1); TOTAL BILIRUBIN 0.1 mg/dL (<0.1-1.0); TOTAL PROTEIN 6.3 g/dL (6.4-8.2)
[2018-09-22] MEDS ORDERED: COLACE100 MG PO (00:25)
[2018-09-22] MEDS ORDERED: LYRICA 50 MG50 MG PO (00:25)
[2018-09-22] MEDS ORDERED: ZOFRAN ODT4 MG DISSOLVE (00:26)
[2018-09-22 00:28] LABS: URINE BILIRUBIN NEGATIVE (Negative); URINE BLOOD NEGATIVE (Negative); URINE CLARITY CLEAR; URINE COLOR YELLOW; URINE GLUCOSE-RANDOM NEGATIVE (Negative); URINE KETONES NEGATIVE (Negative); URINE LEUKOCYTES-REFLEX NEGATIVE (Negative); URINE NITRITE-REFLEX NEGATIVE (Negative); URINE PROTEIN NEGATIVE (Negative); URINE SPECIFIC GRAVITY <= 1.005 (1.005-1.030); URINE UROBILINOGEN 0.2 E.U./dl (0.2-1.0)
[2018-09-22] MEDS ORDERED: FENTANYL PATCH75 MCG TRANSDERM ×2 (02:07→02:29)
[2018-09-22 02:47] VITALS: BP 142/70
--- NOTE | 2018-09-22 17:39 | EKG ---
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 : 1935 Requested By: Sarah Mireles Order Number: [id number] Reading MD: Julian Blanco Measurements Intervals [place] Rate: 74 P: 18 [place]: 168 QRS: -31 QRSD: 96 T: 16 QT: 444 QTc: 493 Interpretive Statements Sinus rhythm Possible left atrial enlargement Left axis deviation RSR' in V1 or V2, probably normal variant Consider anterior infarct Compared to ECG 02/02/2018 04:29:02 Left-axis deviation now present RSR' in V1 or V2 now present Left ventricular hypertrophy no longer present Myocardial infarct finding still present Electronically Signed On 09-22-2018 17:38:57 CDT by Julian Blanco [email or web address] <ELECTRONICALLY SIGNED> By: Julian Blanco MD, FAC 09/22/18 1738 0135 0135 Julian Blanco MD, FAC /EPI
== END 2018-09-22 02:47 | disposition home or self-care (01) ==
LOC: M.ERS 22:59
PROVIDERS: Emergency Medicine
DX: M54.2 Cervicalgia (principal); K74.60 Unspecified cirrhosis of liver; M79.7 Fibromyalgia; E89.0 Postprocedural hypothyroidism; K21.9 Gastro-esophageal reflux disease without esophagitis; M06.9 Rheumatoid arthritis, unspecified; J45.909 Unspecified asthma, uncomplicated; Z88.5 Allergy status to narcotic agent; Z88.6 Allergy status to analgesic agent; Z88.0 Allergy status to penicillin; Z88.2 Allergy status to sulfonamides; Z88.8 Allergy status to other drugs, medicaments and biological substances; Z95.1 Presence of aortocoronary bypass graft; Z95.5 Presence of coronary angioplasty implant and graft; Z96.642 Presence of left artificial hip joint

== ENCOUNTER 2018-10-26 00:24 | Inpatient (IN) | payer MEDICARE, OTHER ==
[~2018-10-26] VITALS: Ht 152.4 cm; Wt 52.2 kg
[2018-10-26] VITALS (7 sets, daily range): BP systolic 97–157; BP diastolic 35–68
[~2018-10-26 00:24] MED LIST changes: +AZITHROMYCIN 2250 MG PO; +ECOTRIN325 MG PO; +HYDROCODON-ACE1 EAC7 PO; +IBUPROFEN 600600 M1 PO; +IPRAT-ALBUT 0.5-3 ML INH; +LYRICA 50 MG50 MG; +PREDNISONE 5 MG5 M1 PO; +PULMICORT0.5 MG/2 M INH; +SENNA PLUS TAB1 EACH PO; +ZOFRAN ODT4 MG DISSOLVE
[2018-10-26] MEDS ORDERED: LASIX 20 MG TAB20 MG PO (00:52)
[2018-10-26] MEDS ORDERED: KLOR-CON 1010 MEQ PO (00:53)
[2018-10-26 00:55] LABS: ABSOLUTE BASOPHILS 0.1 thou/uL (0.0-0.2); ABSOLUTE EOSINOPHILS 0.3 thou/uL (0.0-0.7); ABSOLUTE LYMPHOCYTES 2.4 thou/uL (0.8-5.3); ABSOLUTE MONOCYTES 0.9 thou/uL (0.0-1.2); ABSOLUTE NEUTROPHILS 9.5 thou/uL (1.6-8.1); BASOPHILS 0.5 %; EOSINOPHILS 2.6 %; HEMATOCRIT 34.1 % (37.0-47.0); HEMOGLOBIN 10.7 gm/dL (12.0-15.0); LYMPHOCYTES 18.1 %; MCH 24.8 pg (26.0-34.0); MCHC 31.4 g/dL (28.0-37.0); MCV 78.9 fL (80.0-100.0); MONOCYTES 6.6 %; MPV 7.8 fl. (7.2-11.1); NUCLEATED RBCS 0 /100WBC; PLATELET COUNT* 390 thou/uL (150-400); POLYS 72.2 %; RBC 4.32 mil/uL (4.20-5.00); RDW-CV 16.5 % (10.5-14.5); WBC 13.1 thou/uL (4.0-11.0)
[2018-10-26] MEDS ORDERED: COLACE100 MG PO (00:55)
[2018-10-26] MEDS ORDERED: TUBERSOL1 ML/1 VIA (00:56)
[2018-10-26] MEDS ORDERED: MILK OF MA400 MG/5 M PO (00:57)
[2018-10-26] MEDS ORDERED: MELATONIN5 M4 PO (00:59)
[2018-10-26] MEDS ORDERED: LIDOCAINE1 EACH TOP (01:01)
[2018-10-26] MEDS ORDERED: [UNRECOGNIZED DRUG - OTHER] PO (01:04)
[2018-10-26 01:09] LABS: ALBUMIN 3.1 g/dL (3.4-5.0); ALKALINE PHOSPHATASE 130 U/L (46-116); ANION GAP 10 mmol/L (7-16); BUN 25 mg/dL (7-18); CALCIUM 8.4 mg/dL (8.5-10.1); CHLORIDE 101 mmol/L (98-107); CO2 30 mmol/L (21-32); CREATININE 1.3 mg/dL (0.6-1.3); GLUCOSE 97 mg/dL (70-99); LIPASE 470 U/L (73-393); POTASSIUM 3.5 mmol/L (3.5-5.1); SGOT 18 U/L (15-37); SGPT 27 U/L (30-65); SODIUM 141 mmol/L (136-145); TOTAL BILIRUBIN 0.2 mg/dL (<0.1-1.0); TOTAL PROTEIN 7.1 g/dL (6.4-8.2); TROPONIN-I LEVEL <0.06 ng/mL (<0.06)
[2018-10-26] MEDS ORDERED: MYLANTA PO (01:10)
[2018-10-26 11:40] LABS: HEMATOCRIT 30.1 % (37.0-47.0); HEMOGLOBIN 9.6 gm/dL (12.0-15.0); MCH 25.7 pg (26.0-34.0); MCHC 31.8 g/dL (28.0-37.0); MCV 80.8 fL (80.0-100.0); MPV 8.1 fl. (7.2-11.1); RBC 3.73 mil/uL (4.20-5.00); RDW-CV 16.4 % (10.5-14.5); WBC 9.7 thou/uL (4.0-11.0)
--- NOTE | 2018-10-26 11:44 | EKG ---
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: Carey NÚÑEZ : 1935 Requested By: Osiel Lopez Order Number: [id number] MD: Julio C Love Measurements Intervals [place] Rate: 75 P: 11 [place]: 157 QRS: -28 QRSD: 93 T: 15 QT: 450 QTc: 503 Interpretive Statements Sinus rhythm Probable left atrial enlargement Left ventricular hypertrophy Anterior Q waves, possibly due to LVH Minimal ST elevation, inferior leads Prolonged QT interval Compared to ECG 09/22/2018 01:35:19 Left ventricular hypertrophy now present Q waves now present ST (T wave) deviation now present Prolonged QT interval now present Electronically Signed On 10-26-2018 11:44:00 CDT by Julio C Love [email or web address] <ELECTRONICALLY SIGNED> By: Julio C Love MD, [facility] 10/26/18 1144 0036 0036 Julio C Love MD, [facility] /EPI
[2018-10-26 11:51] LABS: CREATININE 1.2 mg/dL (0.6-1.3); MAGNESIUM 2.7 mg/dL (1.8-2.4); POTASSIUM 3.8 mmol/L (3.5-5.1)
[2018-10-26 18:31] LABS: HEMATOCRIT 29.6 % (37.0-47.0); HEMOGLOBIN 9.2 gm/dL (12.0-15.0)
[2018-10-27] VITALS: BP 116/58
[2018-10-27 04:32] VITALS: BP 126/50
[2018-10-27 05:16] LABS: MCH 25.2 pg (26.0-34.0); MCHC 30.9 g/dL (28.0-37.0); MCV 81.5 fL (80.0-100.0); RBC 3.56 mil/uL (4.20-5.00); RDW-CV 16.3 % (10.5-14.5); WBC 7.2 thou/uL (4.0-11.0)
[2018-10-27 05:56] LABS: CALCIUM 7.6 mg/dL (8.5-10.1); CREATININE 0.9 mg/dL (0.6-1.3); MAGNESIUM 2.5 mg/dL (1.8-2.4); POTASSIUM 4.2 mmol/L (3.5-5.1)
[2018-10-27 08:01] VITALS: BP 128/77
[2018-10-27 09:15] VITALS: BP 128/77
--- NOTE | 2018-10-27 10:21 | CON ---
[address] [address] CONSULTATION Name: HOSSEIN REDD Room: [address] IN [facility].#: [id number] Admission: 10/26/18 Attend Phys: Raphael Cuello MD Discharge: Date of : 33 Report #: [id number] THIS REPORT FOR: //name// CC: Raphael Wallace MD [facility] physician/PCP DICTATED BY: Shavonne MALONEP DATE OF SERVICE: 10/26/2018 Please note at the time of this dictation, the patient was seen and physically examined by myself. REASON FOR CONSULTATION: Hematemesis and epigastric pain. The patient does have a history of gastric ulcers in the past. She denies taking any NSAIDs here recently. She has been in a long-term care facility due to a recent pelvic fracture in which she was discharged to a skilled unit. She has been taking pain medication for this as well. She states she had been having this epigastric pain for about 3 days prior to her having the nausea and the coffee ground emesis that she noted. She had asked for Mylanta or something in the rehab center, but no one gave her anything. She states when she got here, she did receive something in the ER, which has helped without burning in the back of her throat, but she still has the epigastric pain. The patient did have an EGD last year in 10/2017, had hiatal hernia noted, but otherwise negative. ALLERGIES: INCLUDE MORPHINE, CODEINE, PENICILLIN, SULFA, AND PROCAINE. MEDICATIONS FROM HOME: Include bisoprolol, Plaquenil, pilocarpine, prednisone, Lyrica, Zofran, aspirin, furosemide, potassium, Colace, magnesium oxide, melatonin, lidocaine Prunelax, Mylanta and levothyroxine. PAST MEDICAL HISTORY: Includes rheumatoid arthritis, chronic constipation, GERD, history of gastric ulcers, fibromyalgia, history of GI bleed. PAST SURGICAL HISTORY: CABG, history of GA, cardiac stents placed, multiple abdominal hernia repairs, small bowel obstructions and recently pelvic fracture and left hip replacement. FAMILY HISTORY: Noncontributory. SOCIAL HISTORY: Denies any alcohol, tobacco or illegal drug use. REVIEW OF SYSTEMS: Twelve-point review of systems is essentially negative except what is [place] [address] CONSULTATION Name: HOSSEIN REDD Room: [address] IN [facility]#: [id number] Admission: 10/26/18 Attend Phys: Raphael Cuello MD Discharge: Date of : 34 Report #: [id number] PHYSICAL EXAMINATION: VITAL SIGNS: Temperature 36.7, pulse 76, respirations 18, blood pressure 109/55. HEART: Regular rate and rhythm. LUNGS: Clear, slightly diminished. ABDOMEN: Soft, positive bowel sounds in all 4 quadrants with some epigastric tenderness noted to palpation. LABORATORY DATA: Hemoglobin is 10.7, white count is 13.1, platelets 390, MCV is 78.9, BUN is 25, creatinine 1.3, GFR is 39. Total bilirubin 0.2, alkaline phosphatase 130, ALT 27, AST is 18, lipase is 470. Chest x-ray was negative, showing hiatal hernia and V/Q scan was negative. Her labs from 09/2018 showed hemoglobin of 11.5. IMPRESSION: 1. Epigastric pain. 2. Hematemesis. 3. History of gastric ulcers. 4. Constipation. 5. Leukocytosis. 6. Recent pelvic fracture and in rehabilitation. PLAN: 1. EGD today with Dr. Arvizu. 2. We will continue her Protonix. 3. Further recommendations to be made once the procedure has been performed. Thank you for allowing us to participate in this patient's care. Please do not hesitate to call with any questions in regard to this consult. Agree with above assessment and plan by Shavonne Garcia <ELECTRONICALLY SIGNED> By: Justin Arvizu MD 10/27/18 1021 1113 0430Justin Arvizu MD /nt
[2018-10-27 11:59] VITALS: BP 136/62
[2018-10-27] MEDS ORDERED: SLOW FE142 MG PO (15:49)
[2018-10-27] MEDS ORDERED: ATORVASTATIN CA40 MG PO (15:49)
[2018-10-27] MEDS ORDERED: OMEPRAZOLE40 MG PO (15:50)
[2018-10-27 15:51] VITALS: BP 110/48
[2018-10-27] MEDS ORDERED: KLOR-CON 1010 MEQ PO (15:51)
[2018-10-28 00:12] VITALS: BP 124/47
[2018-10-28 04:00] VITALS: BP 145/52
[2018-10-28 05:14] LABS: CALCIUM 7.8 mg/dL (8.5-10.1); MAGNESIUM 2.2 mg/dL (1.8-2.4); POTASSIUM 4.5 mmol/L (3.5-5.1)
[2018-10-28 06:00] LABS: HEMATOCRIT 29.7 % (37.0-47.0); MCH 25.8 pg (26.0-34.0); MCHC 30.5 g/dL (28.0-37.0); MCV 84.7 fL (80.0-100.0); MPV 8.4 fl. (7.2-11.1); RBC 3.51 mil/uL (4.20-5.00); RDW-CV 16.4 % (10.5-14.5); WBC 7.8 thou/uL (4.0-11.0)
[2018-10-28 07:30] VITALS: BP 157/44
[2018-10-28] MEDS ORDERED: ATORVASTATIN CA40 MG PO (09:21)
[2018-10-28] MEDS ORDERED: ASPIRIN81 M2 PO (09:21)
[2018-10-28] MEDS ORDERED: PANTOPRAZOLE SO40 M1 PO (09:21)
[2018-10-28 15:24] VITALS: BP 135/56
[2018-10-28 20:00] VITALS: BP 119/36
[2018-10-28 23:53] VITALS: BP 156/61
[2018-10-29 05:00] VITALS: BP 135/48
[2018-10-29 08:01] VITALS: BP 130/53
[2018-10-29 09:45] VITALS: BP 130/53
[2018-10-29 11:57] VITALS: BP 126/43
== END 2018-10-29 14:50 | DRG 378 ==
LOC: M.ERS 00:24 → M.TBA-ER 02:13 → M.2W 02:13
PROVIDERS: Emergency Medicine Emergency Medical Services; Internal Medicine; Nurse Practitioner Adult Health; ADMIT Internal Medicine
PROC: 0DJ08ZZ Inspection of Upper Intestinal Tract, Via Natural or Artificial Opening Endoscopic (ICD-10-PCS; principal; 2018-10-27)
DX: K25.4 Chronic or unspecified gastric ulcer with hemorrhage (principal); E44.1 Mild protein-calorie malnutrition; K44.9 Diaphragmatic hernia without obstruction or gangrene; K21.9 Gastro-esophageal reflux disease without esophagitis; M79.7 Fibromyalgia; K59.09 Other constipation; M06.9 Rheumatoid arthritis, unspecified; E78.5 Hyperlipidemia, unspecified; J45.909 Unspecified asthma, uncomplicated; D72.829 Elevated white blood cell count, unspecified; N18.3 Chronic kidney disease, stage 3 (moderate); G89.29 Other chronic pain; K74.60 Unspecified cirrhosis of liver; I25.10 Atherosclerotic heart disease of native coronary artery without angina pectoris; Z96.642 Presence of left artificial hip joint; Z95.5 Presence of coronary angioplasty implant and graft; I25.2 Old myocardial infarction; Z95.1 Presence of aortocoronary bypass graft; Z79.82 Long term (current) use of aspirin; Z88.5 Allergy status to narcotic agent; Z88.2 Allergy status to sulfonamides; Z88.0 Allergy status to penicillin; Z88.1 Allergy status to other antibiotic agents; Z86.73 Personal history of transient ischemic attack (TIA), and cerebral infarction without residual deficits; Z68.22 Body mass index [BMI] 22.0-22.9, adult

== ENCOUNTER → 2019-04-11 | Outpatient (CLI) | payer MEDICARE, OTHER ==
[~2019-04-11] MED LIST changes: +LIDOCAINE1 EACH TOP; +MELATONIN5 M4 PO; +MILK OF MA400 MG/5 M PO; +MYLANTA PO; +OMEPRAZOLE40 MG PO; +SLOW FE142 MG PO; +TUBERSOL1 ML/1 VIA; +[UNRECOGNIZED DRUG - OTHER] PO
== END ==
LOC: M.LAB 10:15 → M.CT 11:30
PROVIDERS: Registered Nurse
DX: I25.41 Coronary artery aneurysm (principal); K44.9 Diaphragmatic hernia without obstruction or gangrene; J98.11 Atelectasis; I25.10 Atherosclerotic heart disease of native coronary artery without angina pectoris; Z95.5 Presence of coronary angioplasty implant and graft

== ENCOUNTER 2019-07-08 03:47 | Inpatient (IN) | payer MEDICARE, OTHER ==
[2019-07-08] VITALS (7 sets, daily range): BP systolic 109–150; BP diastolic 45–84
[~2019-07-08] VITALS: Ht 162.6 cm; Wt 47.2 kg
--- NOTE | ~2019-07-08 | CON ---
[address] [address] CONSULTATION Name: HOSSEIN REDD Room: [address] IN [facility]#: [id number] Admission: 07/08/19 Attend Phys: Nahid Bradford Discharge: Date of : 34 Report #: [id number] THIS REPORT FOR: //name// CC: Austin Enriqeu DATE OF SERVICE: 07/09/2019 HISTORY OF PRESENT ILLNESS: This is an 84-year-old female patient who was evaluated by me for dizziness. The patient indicates that her major problem is neck pain. Sometimes, she says the pain is in the front of the neck and sometimes she says it is in the back of the neck. She does not know any aggravating or relieving factor for this pain. She indicates she had this pain for several months to few years. It started spontaneously without any trauma. She had a sed rate done last year and that was normal. No pain in the location of the temporal artery is there. REVIEW OF SYSTEMS: Indicate that the patient had dizziness before. At one time, she was diagnosed with Meniere's disease. She has a prior history of coronary artery disease. She does have a history of hypercholesterolemia. She denies any visual symptoms. She says she does not have any specific ENT, cardiac, respiratory, , constitutional, dermatological, hematological, psychiatric, throat, allergic symptom associated with a lot of symptoms. She has significant nausea and vomiting. She does not have any urinary symptoms. PAST MEDICAL HISTORY: Positive for dizziness like this in the past. FAMILY HISTORY: Positive for coronary artery disease. SOCIAL HISTORY: She has a prior history of smoking, but does not smoke now. PHYSICAL EXAMINATION: The patient's examination indicate that she is alert, responsive, able to follow simple and complex command. Her speech, concentration, fund of knowledge and memory is at her baseline. Cranial nerve examination 2-12 does not appear to be showing any definite abnormality. Her pupils are asymmetrical, but she said it has been like this since her surgery. She has symmetrical strength, sensation, reflexes and tone in all 4 extremities. There is no cerebellar sign. I could not look at the patient's fundus. There is no meningeal sign. Cardiac examination is unremarkable. No respiratory difficulty was noticed. Pulses are palpable. There is no edema, cyanosis or jaundice. She is a thinly built individual who can hear and her vision is adequate. She does not have any dysmorphic features of face. Blood pressure is 120/57, respirations 17, pulse is 64 and temperature is 98.2. LABORATORY DATA: Labs indicate a white count of 11.1 when she came in, but is normal now. Her MRIs were reviewed. MRI does not show any new stroke[place] [address] CONSULTATION Name: HOSSEIN REDD Room: [address] IN [facility]#: [id number] Admission: 07/08/19 Attend Phys: Nahid Bradford Discharge: Date of : 34 Report #: [id number] does show old strokes. Her last sed rate was normal. IMPRESSION AND PLAN: 1. Her neck pain is most likely osteoarthritic. We will try to exclude other etiology. 2. I will repeat the sed rate. 3. I will give her thiamine because of her persistent nausea and vomiting. 4. If the pain continues, we might do an MRI of the neck. 5. The patient has prior strokes and her last lipid profile was markedly abnormal. She is on statin, but we may have to readjust the dose and because of that, I would repeat the sed rate in the morning and a lipid profile. Thank you very much for this referral and if you have any question, please feel free to contact me. By: [id number] Huntley MD /nt
[2019-07-08] MEDS ORDERED: PRILOSEC OTC20 MG PO ×2 (03:57→04:04)
[2019-07-08] MEDS ORDERED: METHOCARBAMOL500 M2 PO (04:00)
[2019-07-08] MEDS ORDERED: LEVO-T50 MCG PO (04:03)
[2019-07-08 04:41] LABS: ABSOLUTE BASOPHILS 0.1 thou/uL (0.0-0.2); ABSOLUTE EOSINOPHILS 0.2 thou/uL (0.0-0.7); ABSOLUTE LYMPHOCYTES 2.2 thou/uL (0.8-5.3); ABSOLUTE MONOCYTES 0.8 thou/uL (0.0-1.2); ABSOLUTE NEUTROPHILS 7.9 thou/uL (1.6-8.1); BASOPHILS 0.6 %; EOSINOPHILS 1.5 %; HEMATOCRIT 37.7 % (37.0-47.0); HEMOGLOBIN 12.2 gm/dL (12.0-15.0); LYMPHOCYTES 19.4 %; MCH 26.5 pg (26.0-34.0); MCHC 32.4 g/dL (28.0-37.0); MCV 81.9 fL (80.0-100.0); MONOCYTES 7.4 %; MPV 8.6 fl. (7.2-11.1); NUCLEATED RBCS 0 /100WBC; PLATELET COUNT* 204 thou/uL (150-400); POLYS 71.1 %; RDW-CV 15.9 % (10.5-14.5); WBC 11.1 thou/uL (4.0-11.0)
[2019-07-08 05:05] LABS: CALCIUM 8.3 mg/dL (8.5-10.1); POTASSIUM 3.8 mmol/L (3.5-5.1)
[2019-07-08 05:15] LABS: ALBUMIN 2.9 g/dL (3.4-5.0); MAGNESIUM 1.5 mg/dL (1.8-2.4); TOTAL BILIRUBIN 0.2 mg/dL (<0.1-1.0); TOTAL PROTEIN 6.2 g/dL (6.4-8.2)
--- NOTE | 2019-07-08 08:54 | EKG ---
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: JENNIFER : 1935 Requested By: Osiel Lopez Order Number: [id number] MD: Kael Jon Measurements Intervals [place] Rate: 71 P: -4 [place]: 173 QRS: -19 QRSD: 94 T: 13 QT: 404 QTc: 439 Interpretive Statements Sinus rhythm artifact noted Probable left atrial enlargement Probable left ventricular hypertrophy Inferior infarct, old Anterior Q waves, possibly due to LVH Compared to ECG 10/26/2018 00:36:27 ST (T wave) deviation no longer present Prolonged QT interval no longer present Electronically Signed On 07-08-2019 8:54:15 PLY SPLICER by Kael Jon [email or web address] <ELECTRONICALLY SIGNED> By: Kael Jon MD, FACC 07/08/19 0854 0412 0412 Kael Jon MD, FAC /EPI
--- NOTE | 2019-07-08 18:24 | NUR ---
PT RECEIVED FROM ER AT 1300, A&O x4. VSS. NO ANY PROCEDURES PLANNED FROM CARDIOLOGY SIDE. ADMISSION PROCESS COMPLETED. PT GETS UP AT STB ASSIST. C/O OF PAIN IN THE BACK AND B/L FEET. FENTANYL PATCH APPLIED AT 1700. PT RESTING CURRENTLY.
--- NOTE | 2019-07-08 20:00 | NUR ---
RECEIVED REPORT AND ASSUMED CARE OF PT, ASSESSMENT COMPLETED. C/O PAIN INTO HER NECK, HANDS AND GENERALIZED DUE TO ARTHRITIS. ASSISTED PT UP IN BED BUT STATES THAT HURTS TOO MUCH. TELEMETRY ON SHOWING SR. WILL CONT TO MONITOR AND ASSIST NEEDED.
[2019-07-09] VITALS: BP 117/66
[2019-07-09 04:09] VITALS: BP 118/64
[2019-07-09 04:46] LABS: ABSOLUTE LYMPHOCYTES 0.9 thou/uL (0.8-5.3); ABSOLUTE MONOCYTES 0.4 thou/uL (0.0-1.2); ABSOLUTE NEUTROPHILS 7.6 thou/uL (1.6-8.1); BASOPHILS 0.2 %; EOSINOPHILS 0.1 %; HEMATOCRIT 35.6 % (37.0-47.0); HEMOGLOBIN 11.8 gm/dL (12.0-15.0); MCH 26.9 pg (26.0-34.0); MCV 81.3 fL (80.0-100.0); MONOCYTES 4.1 %; MPV 8.5 fl. (7.2-11.1); NUCLEATED RBCS 0 /100WBC; PLATELET COUNT* 206 thou/uL (150-400); POLYS 85.6 %; RBC 4.38 mil/uL (4.20-5.00); RDW-CV 16.4 % (10.5-14.5); WBC 8.9 thou/uL (4.0-11.0)
[2019-07-09 05:17] LABS: ALBUMIN 2.5 g/dL (3.4-5.0); CREATININE 1.1 mg/dL (0.6-1.3); POTASSIUM 4.3 mmol/L (3.5-5.1); TOTAL BILIRUBIN 0.1 mg/dL (<0.1-1.0); TOTAL PROTEIN 6.2 g/dL (6.4-8.2)
--- NOTE | 2019-07-09 07:23 | NUR ---
SLEPT WELL TONIGHT. ASSISTED TO AND FROM BR WITH STEADY GAIT. NO CHANGE IN ASSESSMENT. TELEMETRY CONT TO SHOW SR. HS GOALS OF REST AND SAFETY ACHIEVED. HOURLY ROUNDING OBSERVED.
[2019-07-09 07:42] VITALS: BP 127/63
--- NOTE | 2019-07-09 07:46 | NUR ---
PT RESTING IN BED, APPEARS ALERT O X 4, DENIES CHEST PAIN,SOB, C/O CHRONIC ARTHRITIC PAIN, DENIES NEED FOR ADDITIOBAL PAIN TX, DENIES NAUSEA, C/O CHRONIC CONSTIPATION
[2019-07-09 11:39] VITALS: BP 107/58
--- NOTE | 2019-07-09 12:54 | NUR ---
Pt is A&O. Resides at home with her . Independent, but is available to assist as needed. Pt has a walker that she can use for mobility. Pt states that she has a cpap that no longer works, Pt knows that she needs to have a new sleep study in order to get a new cpap, Pt is unsure of when she will be able to complete this. Hx of [facility]. Hx of skilled at [facility]. [place]al [place] with [facility]. Orders, facesheet ant H&P to be faxed to [phone]
[2019-07-09 16:46] VITALS: BP 120/57
--- NOTE | 2019-07-09 17:32 | NUR ---
PT OFF FLOOR FOR MRI
[2019-07-09 20:00] VITALS: BP 132/57
[2019-07-10] VITALS (7 sets, daily range): BP systolic 108–123; BP diastolic 47–66
--- NOTE | 2019-07-10 06:47 | NUR ---
ASSUMED CARE OF PT AFTER REPORT AT 1930. PT A&OX4. VSS. PHYSICAL ASSESSMENT COMPLETED AND CHARTED. PT O2 SAT AT 85-88%-PLACED ON O2 AT 2L NC. PT TRACING SR/PAC ON TELE. PT UPSTANDBY TO RESTROOM. NO EPISODE OF DIZZINESS OR NAUSEA. PT ABLE TO SLEEP WELL ON BED. CALL LIGHT WITHIN REACH.
--- NOTE | 2019-07-10 07:49 | NUR ---
PT RESTING IN BED, APPEARS ALERT O X 4, DENIES CHEST PAIN, SOB, PAIN OR DISCOMFORT. DENIES NUSE OR FEELING LIGHTHEAD, PIV L FA, NSR ON MONITOR. O2 AT 2L PER NC, SDATS 98%
--- NOTE | 2019-07-10 10:31 | CON ---
[address] [address] CONSULTATION Name: HOSSEIN REDD Room: [address] IN [facility]#: [id number] Admission: 07/08/19 Attend Phys: Nahid Bradford Discharge: Date of : 34 Report #: [id number] THIS REPORT FOR: //name// CC: Austin Brower Lakshmi Enrique DATE OF SERVICE: 07/08/2019 CARDIOLOGY CONSULTATION HISTORY OF PRESENT ILLNESS: The patient is a very pleasant 84-year-old female, presents now with abdominal discomfort and a feeling that she needs to throw up. She does have a history of coronary artery disease, status post remote coronary artery bypass grafting and stenting. 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 She presents on this occasion with abdominal discomfort, but categorically denies chest pain or anything similar to her prior ischemic syndrome. She does have risk factors for coronary artery disease including prior cigarette smoking, hypercholesterolemia and a family history of coronary artery disease. PAST SURGICAL HISTORY: Prior surgeries have included coronary artery bypass grafting, hip replacement and thyroidectomy. FAMILY HISTORY: Remarkable for her mother and father having myocardial infarctions and coronary artery disease. SOCIAL HISTORY: The patient neither drinks nor smokes. REVIEW OF SYSTEMS: Remarkable for the following positives. CARDIOVASCULAR: There is a history of coronary artery disease, but she denies chest discomfort on this occasion. HEMATOLOGIC AND LYMPHATIC: He has a history of remote skin cancers. ALLERGIC/IMMUNOLOGIC: She notes CODEINE, MORPHINE, PENICILLIN, PROCAINE AND SULFA ALLERGIES. MUSCULOSKELETAL: She notes chronic arthritic complaints. Remainder is unremarkable. PHYSICAL EXAMINATION: GENERAL: Reveals a frail, elderly female. VITAL SIGNS: Blood pressure 140/70, pulse rate is 64, respirations are 18 per minute. NECK: Jugular venous pressure is normal. CHEST: [place] [address] CONSULTATION Name: HOSSEIN REDD Room: [address]#: [id number] Admission: 07/08/19 Attend Phys: Nahid Bradford Discharge: Date of : 34 Report #: [id number] CARDIAC: Reveals normal first and second heart sounds with a soft systolic murmur without rubs or gallops. ABDOMEN: Mildly obese. EXTREMITIES: Satisfactorily perfused. LABORATORY DATA: Electrocardiogram reveals sinus rhythm, possible left atrial enlargement and possible left ventricular hypertrophy without ischemic changes. IMPRESSION: 1. Abdominal discomfort, not suggesting myocardial ischemia. 2. Coronary artery disease, status post remote coronary artery bypass grafting. 3. Positive family history of coronary artery disease. 4. Remote tobacco abuse. 5. Hypercholesterolemia. RECOMMENDATIONS: Continued focus on her abdominal discomfort. I doubt cardiac etiology for her presenting symptoms and she continues to deny anything suggesting myocardial ischemia. <ELECTRONICALLY SIGNED> By: Julio C Love MD, FACC 07/10/19 1031 1438 [id number] Yosi Love MD, [facility] /nt
[2019-07-10] MEDS ORDERED: VITAMIN B-1100 M1 PO (17:10)
[2019-07-10] MEDS ORDERED: ANTIVERT25 MG PO (17:10)
[2019-07-10] MEDS ORDERED: ZOFRAN ODT4 MG DISSOLVE (17:11)
--- NOTE | 2019-07-11 20:32 | CON ---
[address] [address] CONSULTATION Name: HOSSEIN REDD Room: [address] IN ..#: [id number] Admission: 07/08/19 Attend Phys: Nahid Bradford Discharge: 07/10/19 Date of : 34 Report #: [id number] THIS REPORT FOR: //name// CC: Austin Enrique DICTATED BY: Shavonne Garcia [facility] DATE OF SERVICE: 07/09/2019 Please note at the time of this dictation, the patient was seen and physically examined by myself. REASON FOR CONSULTATION: Nausea and abdominal pain. HISTORY OF PRESENT ILLNESS: This is an 84-year-old female who presented to the Emergency Room with feeling nauseated and feeling like she could throw up. She did describe that she was having abdominal discomfort and pointed to her chest area. She does have a history of coronary artery disease and status post remote coronary artery bypass grafting and stenting done in the past. The patient states she has been having nausea for the past week that she has also been battling a head cold. She states she saw her PCP because she had a lot of head congestion with blowing a lot of green out of her nose. She was having right neck discomfort that went from the back of her right ear down the side of her neck. She states she is being dizzy and she has been very nauseated because of the dizziness, all have which started about a week ago. She also started a new medicine called Robaxin to help her with her sleep and she thought maybe it was associated with that, but she has not taken that for the last 2 days and she is still having dizziness. She denies any abdominal pain at the time of my examination. The patient was last seen in October 2018, she had a large hiatal hernia with Waldemar ulcers that were noted. She had a colonoscopy done in 08/2016 that showed diffuse melanosis with some diverticular disease and mild external hemorrhoids were noted. The patient states she does have a history of constipation, which she uses prunes, raisins and drinks prune juice and will take a stool softener daily and that helps regulate her, which she goes usually every day. ALLERGIES: PENICILLIN, SULFA, MORPHINE, CODEINE, PROCAINE. MEDICATIONS: From home include potassium, bisoprolol, Plaquenil, Zofran, Lasix, Colace, Prunelax, Mylanta, pilocarpine, prednisone, Lyrica, methocarbamol, levothyroxine, omeprazole. PAST MEDICAL HISTORY: Rheumatoid arthritis, chronic constipation, GERD, fibromyalgia, asthma[place] [address] CONSULTATION Name: HOSSEIN ERDD Room: [address] IN ..#: [id number] Admission: 07/08/19 Attend Phys: Nahid Bradford Discharge: 07/10/19 Date of : 33 Report #: [id number] PAST SURGICAL HISTORY: CABG, stent, multiple abdominal hernia repairs, thyroidectomy, left hip replacement and a pubic rami fracture. FAMILY HISTORY: Noncontributory. SOCIAL HISTORY: Denies any alcohol, tobacco or illegal drug use. REVIEW OF SYSTEMS: Twelve-point review of systems is essentially negative except what is mentioned in the HPI. PHYSICAL EXAMINATION: VITAL SIGNS: Temperature 36.6, pulse 77, respirations 18, blood pressure 127/63. HEART: Regular rate and rhythm. LUNGS: Clear. ABDOMEN: Soft, positive bowel sounds in all 4 quadrants with no masses or tenderness noted. LABORATORY DATA: Hemoglobin on admission was 12.2, she is 11.8, white count is 8.9, platelets 206. GFR is 27, BUN is 14. LFTs are completely normal. Chest x-ray shows questionable small right mid lung mass 1.2 cm. IMPRESSION: 1. Nausea for one week without vomiting. 2. History of constipation. 3. History of hiatal hernia, large and Waldemar ulcers noted back in 10/2018. 4. Upper respiratory tract infection with likely Eustachian tube dysfunction. 5. History of Meniere's disease. PLAN: 1. Continue her PPI b.i.d. to see if it helps with her nausea. 2. Symptoms seem likely related to severe head congestion with some Eustachian tube dysfunction causing the pain into her right neck. 3. We will continue to follow, but no plans for any endoscopic evaluation at this time. Thank you for allowing us to participate in this patient's care. Please do not hesitate to call with any questions in regard to this consult. Agree with above assessment and plan by Shavonne Garcia <ELECTRONICALLY SIGNED> By: Justin Arvizu MD 07/11/192031 0952 0007Justin Arvizu MD /nt
== END 2019-07-10 18:59 | disposition home or self-care (01) | DRG 392 ==
LOC: M.ERS 03:47 → M.2W 05:13 → M.TBA-ER 05:13 → M.2W 12:51
PROVIDERS: Emergency Medicine Emergency Medical Services; Internal Medicine; ADMIT Internal Medicine
DX: A08.4 Viral intestinal infection, unspecified (principal); I50.32 Chronic diastolic (congestive) heart failure; E44.0 Moderate protein-calorie malnutrition; Z68.1 Body mass index [BMI] 19.9 or less, adult; R42 Dizziness and giddiness; M06.9 Rheumatoid arthritis, unspecified; K59.09 Other constipation; K21.9 Gastro-esophageal reflux disease without esophagitis; I25.10 Atherosclerotic heart disease of native coronary artery without angina pectoris; E66.9 Obesity, unspecified; E78.00 Pure hypercholesterolemia, unspecified; K44.9 Diaphragmatic hernia without obstruction or gangrene; J06.9 Acute upper respiratory infection, unspecified; E83.51 Hypocalcemia; D72.819 Decreased white blood cell count, unspecified; R51 Headache; M54.2 Cervicalgia; M79.7 Fibromyalgia; K74.60 Unspecified cirrhosis of liver; J45.909 Unspecified asthma, uncomplicated; Z96.642 Presence of left artificial hip joint; Z87.11 Personal history of peptic ulcer disease; Z79.899 Other long term (current) drug therapy; Z72.0 Tobacco use; I25.2 Old myocardial infarction; Z95.5 Presence of coronary angioplasty implant and graft; Z95.1 Presence of aortocoronary bypass graft; Z90.89 Acquired absence of other organs; Z88.5 Allergy status to narcotic agent; Z88.0 Allergy status to penicillin; Z88.2 Allergy status to sulfonamides; Z88.8 Allergy status to other drugs, medicaments and biological substances; Z82.49 Family history of ischemic heart disease and other diseases of the circulatory system; Z80.9 Family history of malignant neoplasm, unspecified

== ENCOUNTER 2020-08-25 11:36 | Inpatient (IN) | payer MEDICARE, OTHER ==
[~2020-08-25] VITALS: Ht 149.9 cm; Wt 48.3 kg
[2020-08-25] VITALS (11 sets, daily range): BP systolic 94–153; BP diastolic 45–64
--- NOTE | ~2020-08-25 | PROC ---
[address] [address] PROCEDURE REPORT Name: HOSSEIN REDD Room: [address] IN [facility]#: [id number] Admission: 08/25/20 Attend Phys: Rena Puri Discharge: 08/28/20 Date of : 33 Report #: [id number] THIS REPORT FOR: cc: Austin Brower MD, Matthew D MD ~ [facility],Medical Records Staff For GI report, please see the Provation report in Perceptive 7 content. By: [facility]6Medical Records Staff [facility] /LILA
--- NOTE | ~2020-08-25 | EMS ---
[facility] [address] [place] [address] EMS Patient Care Report Name: HOSSEIN REDD Room: [address] IN [facility]#: [id number] Admission: 08/25/20 Attend Phys: Rena Puri Discharge: Date of : 33 Report #: [id number] THIS REPORT FOR: //name// Report Transmitted: 08/27/2020 11:51 EMS Care Summary [facility] Incident [id number] @ 08/25/2020 10:36 Incident Location [address] [place] [address] Patient HOSSEIN REDD Female, 85 Years 1935 Patient Address [address] [place] [address] Patient History Hypertension (HTN),Arthritis,Cardiac - Stent, Patient Allergies Codeine,Morphine, Chief Complaint Abdomen pain Disposition Transported No Lights/[place] Dispatch Reason Sick Person Transported To [facility] Narrative Dispatched: Medic 32 dispatched to [address] [place] [address] for a female with a possible UTI. C: Abdominal pain, constipation and unable to urinate. H: Pt states she has not had a bowl movement for three days [place] [address] EMS Patient Care Report Name: HOSSEIN REDD Room: [address] IN [facility]#: [id number] Admission: 08/25/20 Attend Phys: Rena Puri Discharge: Date of : 33 Report #: [id number] urinate today. Pt states she has tried to have a bowl moment with no success. Pt has took multiple laxatives with no change in condition and has noted her stomach to be bigger then normal. Pt has a past medical history of hypertension, Stents and Arthritis. Pt has medication allergies to Morphine and codeine. A: Pt is sitting upright in a chair in her living room. Pt is a alert female in no obvious distress, airway is patent and self maintained, no labored breathing noted, skin is pink warm and dry with no obvious bleeding. LOC: A&OX4 with a GCS of 15. HEENT: Pt is able to speak in full sentences, pupils are equal and round. NECK: Trachea is mid line with no JVD noted. CHEST: Pt has equal chest rise and fall with non labored respiration's. Lung sounds are clear and equal bi laterally. HEART: Not assessed. ECG: HR 70 BPM, sinus rhythm. ABDOMEN: Soft and tender on palpation in all quadrates. Pt has noted distention of the abdomen. GI/: Pt complains of nausea but denies vomiting. Pt has not had a bowl movement in three days but is able to pass gas. Pt states she is unable to urinate this morning and she usually urinates first thing in the morning. Pt denies painful urinate prior to not being able to urinate. EXTREMITIES: PMS intact in all extremities. BACK: Not assessed. PELVIS: Stable. GEN/RECT: Not assessed. SKIN: [place], warm and dry with no obvious bleeding. NEURO: Normal. REASON FOR TRANSPORT: Pt request to be transported to [facility] for abdominal pain. [address] [address] EMS Patient Care Report Name: HOSSEIN REDD Room: [address] IN [facility]#: [id number] Admission: 08/25/20 Attend Phys: Rena Puri Discharge: Date of : 33 Report #: [id number] TREATMENT/TRANSPORT: Pt is assisted from her chair to the stretcher and secured, Pt is then moved to the ambulance by stretcher. Established IV with lock, 3 lead EKG, Zofran and Pt is placed in semi fowlers for comfort. SUMMARY: Pt was transported without incident, during transport no change in Pt condition and monitored vitals. On scene Yell moved Pt to ER room 5 by stretcher and gave verbal report to RN. END of Report- Hans Alvarado; [id number] Initial Vitals @11:23P: 67,BP: 121/65,SpO2: 93, @11:08P: 65,BP: 119/65,SpO2: 94, @10:48P: 57,R: 16,BP: 144/78,Pain: /10,GCS: 15,Temp: 98.6F,Glucose: 112,SpO2: 99,Revised Trauma: 12, @11:28P: 70,R: 18,BP: 121/66,Pain: 1/10,GCS: 15,SpO2: 95,Revised Trauma: 12, @10:53P: 0,SpO2: 92, @10:58P: 70,BP: 146/68,SpO2: 92, Assessments @10:45MENTAL:Time Oriented,Person Oriented,Event Oriented,Place Oriented,SKIN:HEENT:LUNG SOUNDS:General: Nausea,Right Upper: Distension,Left Upper: Distension,Left Upper: Tenderness,Right Lower: Distension,Left Lower: Tenderness,Left Lower: Distension,Right Upper: Tenderness,Right Lower: Tenderness,ABDOMEN:General: Nausea,Right Upper: Distension,Left Upper: Distension,Left Upper: Tenderness,Right Lower: Distension,Left Lower: Tenderness,Left Lower: Distension,Right Upper: Tenderness,Right Lower: Tenderness,PELVIS//GI:EXTREMITIES:Capillary Refill: Right Upper: < 2 Sec,PULSE:Radial: 2+ Normal,NEURO:@11:05MENTAL:Place Oriented,Event Oriented,Time Oriented,Person Oriented,SKIN:HEENT:LUNG SOUNDS:Left Upper: Distension,Right Upper: Distension,Left Upper: Tenderness,Left Lower: Distension,Right Upper: Tenderness,Right Lower: Distension,Right Lower: Tenderness,Left Lower: Tenderness,ABDOMEN:Left Upper: Distension,Right Upper: Distension,Left Upper: Tenderness,Left Lower: Distension,Right Upper: Tenderness,Right Lower: Distension,Right Lower: Tenderness,Left Lower: Tenderness,PELVIS//GI:EXTREMITIES:Capillary Refill: Right Upper: < 2 Sec,PULSE:Radial: 2+ Normal,NEURO: Impression Abdominal Pain Procedures @11:15Zofran - 4 Milligrams (mg) - Intravenous (IV)Response: Unchanged@10:54Saline Lock 20cc (20 ga) Site: Antecubital-LeftResponse: UnchangedSucceeded@10:42ALS AssessmentResponse: [place] [address] EMS Patient Care Report Name: HOSSEIN REDD Room: [address] IN [place].#: [id number] Admission: 08/25/20 Attend Phys: Rena Puri Discharge: Date of : 33 Report #: [id number] Timeline 10:36,Call Received 10:36,Dispatched 10:37,En Route 10:41,On Scene 10:42,At Patient 10:42,ALS Assessment,Response: UnchangedSucceeded, 10:48,BP: 144/78 M,PULSE: 57,RR: 16 R,SPO2: 99 Ox,ETCO2: ,B,PAIN: 1,GCS: 15, 10:53,BP: / M,PULSE: 0,RR: R,SPO2: 92 Ox,ETCO2: ,BG: ,PAIN: ,GCS: , 10:54,Saline Lock 20cc 20 ga Site: Antecubital-Left,Response: UnchangedSucceeded, 10:57,Depart Scene 10:58,BP: 146/68 M,PULSE: 70,RR: R,SPO2: 92 Ox,ETCO2: ,BG: ,PAIN: ,GCS: , 11:08,BP: 119/65 M,PULSE: 65,RR: R,SPO2: 94 Ox,ETCO2: ,BG: ,PAIN: ,GCS: , 11:15,Zofran - 4 Milligrams (mg) - Intravenous (IV),Response: Unchanged 11:23,BP: 121/65 M,PULSE: 67,RR: R,SPO2: 93 Ox,ETCO2: ,BG: ,PAIN: ,GCS: , 11:28,BP: 121/66 M,PULSE: 70,RR: 18 R,SPO2: 95 Ox,ETCO2: ,BG: ,PAIN: 1,GCS: 15, 11:33,At Destination 12:23,Call Closed Disclaimer v1.1 Copyright 2020 [employer] This EMS Care Summary contains data elements from the applicable legal record (which may be displayed differently). It is designed to provide pertinent information for the following purposes: continuity of care, clinical quality, and state data reporting. The complete legal record is available to ED staff and administrators of the receiving hospital in [employer] Patient Tracker. All data is provided "as is."
[~2020-08-25 11:36] MED LIST changes: +LEVO-T50 MCG PO; +METHOCARBAMOL500 M2 PO; +PRILOSEC OTC20 MG PO; +VITAMIN B-1100 M1 PO
[2020-08-25 12:16] LABS: URINE BILIRUBIN NEGATIVE (Negative); URINE BLOOD TRACE (Negative); URINE CLARITY CLEAR; URINE COLOR YELLOW; URINE GLUCOSE-RANDOM NEGATIVE (Negative); URINE KETONES NEGATIVE (Negative); URINE LEUKOCYTES-REFLEX NEGATIVE (Negative); URINE NITRITE-REFLEX NEGATIVE (Negative); URINE PROTEIN NEGATIVE (Negative); URINE SPECIFIC GRAVITY 1.015 (1.005-1.030); URINE UROBILINOGEN 0.2 E.U./dl (0.2-1.0)
[2020-08-25 12:24] LABS: ABSOLUTE BASOPHILS 0.1 thou/uL (0.0-0.2); ABSOLUTE EOSINOPHILS 0.2 thou/uL (0.0-0.7); ABSOLUTE LYMPHOCYTES 1.1 thou/uL (0.8-5.3); ABSOLUTE MONOCYTES 0.8 thou/uL (0.0-1.2); ABSOLUTE NEUTROPHILS 7.5 thou/uL (1.6-8.1); BASOPHILS 0.9 %; EOSINOPHILS 2.4 %; HEMATOCRIT 29.6 % (37.0-47.0); HEMOGLOBIN 8.9 gm/dL (12.0-15.0); LYMPHOCYTES 11.1 %; MCH 20.9 pg (26.0-34.0); MCHC 30.1 g/dL (28.0-37.0); MCV 69.3 fL (80.0-100.0); MONOCYTES 8.1 %; MPV 7.1 fl. (7.2-11.1); NUCLEATED RBCS 0 /100WBC; PLATELET COUNT* 388 thou/uL (150-400); POLYS 77.5 %; RBC 4.27 mil/uL (4.20-5.00); RDW-CV 17.7 % (10.5-14.5); WBC 9.6 thou/uL (4.0-11.0)
[2020-08-25 12:32] LABS: CREATININE 1.1 mg/dL (0.6-1.3); POTASSIUM 4.8 mmol/L (3.5-5.1)
[2020-08-25 12:37] LABS: ALBUMIN 2.7 g/dL (3.4-5.0); TOTAL BILIRUBIN 0.2 mg/dL (<0.1-1.0)
[2020-08-25 12:41] LABS: PLATELET ESTIMATE ADEQUATE
[2020-08-25 12:42] LABS: ANISOCYTOSIS 2+; HYPOCHROMASIA 2+; MICROCYTES 2+; OVALOCYTES 1+; POIKILOCYTOSIS 2+
[2020-08-25 15:57] LABS: MAGNESIUM 1.9 mg/dL (1.8-2.4); PHOSPHORUS* 3.9 mg/dL (2.5-4.9)
--- NOTE | 2020-08-25 16:21 | EKG ---
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 : 1935 Requested By: Janet Ferrera Order Number: [id number] MD: Kael Jon Measurements Intervals [place] Rate: 70 P: -5 [place]: 171 QRS: -16 QRSD: 94 T: 9 QT: 417 QTc: 450 Interpretive Statements Sinus rhythm Atrial premature complex Borderline left axis deviation Consider anterior infarct Compared to ECG 07/08/2019 04:12:39 Atrial premature complex(es) now present Myocardial infarct finding still present Electronically Signed On 08-25-2020 16:21:11 PRINCIPAL TRAINER by Kael Jon [email or web address] <ELECTRONICALLY SIGNED> By: Kael Jon MD, FAC 08/25/20 1621 1144 1144 Kael Jon MD, FAC /EPI
[2020-08-25] MEDS ORDERED: VOLTAREN GEL 1100 G1 TOP (22:30)
[2020-08-26 06:41] LABS: ABSOLUTE EOSINOPHILS 0.2 thou/uL (0.0-0.7); ABSOLUTE LYMPHOCYTES 1.2 thou/uL (0.8-5.3); ABSOLUTE MONOCYTES 0.5 thou/uL (0.0-1.2); ABSOLUTE NEUTROPHILS 4.6 thou/uL (1.6-8.1); BASOPHILS 0.7 %; EOSINOPHILS 2.3 %; HEMOGLOBIN 7.5 gm/dL (12.0-15.0); MCH 21.1 pg (26.0-34.0); MCHC 30.1 g/dL (28.0-37.0); MCV 69.9 fL (80.0-100.0); MONOCYTES 7.9 %; MPV 7.2 fl. (7.2-11.1); NUCLEATED RBCS 0 /100WBC; POLYS 70.1 %; RBC 3.57 mil/uL (4.20-5.00); RDW-CV 17.7 % (10.5-14.5); WBC 6.5 thou/uL (4.0-11.0)
[2020-08-26 06:45] LABS: PLATELET COUNT* 246 thou/uL (150-400)
[2020-08-26 06:52] LABS: ALBUMIN 2.2 g/dL (3.4-5.0); ALKALINE PHOSPHATASE 57 U/L (46-116); ANION GAP 8 mmol/L (7-16); BUN 13 mg/dL (7-18); CALCIUM 7.2 mg/dL (8.5-10.1); CHLORIDE 99 mmol/L (98-107); CO2 28 mmol/L (21-32); GLUCOSE 76 mg/dL (70-99); SGOT 19 U/L (15-37); SGPT 13 U/L (30-65); SODIUM 135 mmol/L (136-145); TOTAL PROTEIN 5.8 g/dL (6.4-8.2)
[2020-08-26 06:53] LABS: POTASSIUM 3.8 mmol/L (3.5-5.1)
[2020-08-26 07:49] VITALS: BP 110/52
[2020-08-26 09:56] LABS: % SATURATION 5 % (20-39); IRON 13 ug/dL (50-175)
[2020-08-26 16:00] VITALS: BP 121/65
[2020-08-26 19:45] VITALS: BP 104/54
[2020-08-26 23:58] VITALS: BP 104/54
[2020-08-27 04:48] LABS: ABSOLUTE EOSINOPHILS 0.1 thou/uL (0.0-0.7); ABSOLUTE LYMPHOCYTES 1.1 thou/uL (0.8-5.3); ABSOLUTE MONOCYTES 0.6 thou/uL (0.0-1.2); ABSOLUTE NEUTROPHILS 5.1 thou/uL (1.6-8.1); BASOPHILS 0.6 %; EOSINOPHILS 1.6 %; HEMATOCRIT 23.7 % (37.0-47.0); HEMOGLOBIN 7.2 gm/dL (12.0-15.0); LYMPHOCYTES 15.4 %; MCHC 30.4 g/dL (28.0-37.0); MCV 68.9 fL (80.0-100.0); MONOCYTES 8.6 %; MPV 7.3 fl. (7.2-11.1); NUCLEATED RBCS 0 /100WBC; PLATELET COUNT* 313 thou/uL (150-400); POLYS 73.8 %; RBC 3.44 mil/uL (4.20-5.00); RDW-CV 17.3 % (10.5-14.5); WBC 6.9 thou/uL (4.0-11.0)
[2020-08-27 05:02] LABS: CALCIUM 8.3 mg/dL (8.5-10.1); CREATININE 0.9 mg/dL (0.6-1.3); POTASSIUM 4.5 mmol/L (3.5-5.1)
[2020-08-27 05:45] VITALS: BP 101/57
[2020-08-27 06:39] LABS: TOTAL BILIRUBIN < 0.1 mg/dL (<0.1-1.0)
[2020-08-27 08:45] VITALS: BP 134/61
[2020-08-27 20:15] VITALS: BP 125/66
[2020-08-28 04:01] VITALS: BP 121/58
[2020-08-28 04:24] LABS: ABSOLUTE BASOPHILS 0.1 thou/uL (0.0-0.2); ABSOLUTE EOSINOPHILS 0.2 thou/uL (0.0-0.7); ABSOLUTE LYMPHOCYTES 1.1 thou/uL (0.8-5.3); ABSOLUTE MONOCYTES 0.5 thou/uL (0.0-1.2); ABSOLUTE NEUTROPHILS 4.4 thou/uL (1.6-8.1); BASOPHILS 0.9 %; EOSINOPHILS 3.3 %; HEMATOCRIT 23.9 % (37.0-47.0); HEMOGLOBIN 7.2 gm/dL (12.0-15.0); LYMPHOCYTES 18.1 %; MCHC 30.2 g/dL (28.0-37.0); MCV 69.5 fL (80.0-100.0); MONOCYTES 7.9 %; MPV 7.1 fl. (7.2-11.1); NUCLEATED RBCS 0 /100WBC; PLATELET COUNT* 289 thou/uL (150-400); POLYS 69.8 %; RBC 3.43 mil/uL (4.20-5.00); RDW-CV 17.7 % (10.5-14.5); WBC 6.3 thou/uL (4.0-11.0)
[2020-08-28 04:39] LABS: CALCIUM 7.9 mg/dL (8.5-10.1); CREATININE 0.8 mg/dL (0.6-1.3); POTASSIUM 4.1 mmol/L (3.5-5.1)
[2020-08-28 07:41] LABS: MICROCYTES 3+; PLATELET ESTIMATE ADEQUATE; TOXIC GRANULATION 1+
[2020-08-28 07:42] LABS: HYPOCHROMASIA 2+; OVALOCYTES 1+
[2020-08-28 08:00] VITALS: BP 124/57
[2020-08-28 08:47] VITALS: BP 124/57
[2020-08-28 09:07] LABS: % SATURATION 8 % (20-39); IRON 17 ug/dL (50-175)
[2020-08-28] MEDS ORDERED: MIRALAX17 GM PO (12:22)
[2020-08-28] MEDS ORDERED: PROTONIX40 M2 PO (12:22)
[2020-08-28] MEDS ORDERED: FENTANYL PATCH75 MCG TRANSDERM (15:36)
--- NOTE | 2020-09-01 17:06 | PATH ---
[address] [address] PATHOLOGY RPT PROCEDURE Name: HOSSEIN AGUERO Room: [address] IN M.R.#: [id number] Admission: 08/25/20 Date of : 33 Discharge: 08/28/20 Report #: [id number] Path Case #: [id number] [facility] Accession Number: [id number] . 01 Material submitted: . gastrointestinal site - PROXIMAL GASTRIC POLYP BIOPSY. Modifiers: proximal . 01 Clinical history: . EGD . 02 Diagnosis: Proximal gastric polyp, biopsy: - Hyperplastic polyp with erosion and acute and chronic inflammation, negative for granulomas and dysplasia/adenomatous change. . (FITO:mml; 09/01/2020) QL 09/01/2020 1158 Local . 02 Electronically signed: . Devin Carter MD, Pathologist NPI- [id number] . 01 Gross description: . Received in formalin labeled "Hossein Aguero, biopsy proximal gastric polyp " is a fragment of kaur-brown soft tissue measuring 1.4 x 1.2 x 1.2 cm. The surgical resection margin is inked black and the specimen is trisected to reveal a kaur-brown cut surface. The specimen is submitted entirely in A1. ([facility]; 08/30/2020) GZA/GZA 08/30/2020 1013 Local . 02 Pathologist provided ICD-10: K31.7, K29.00, K29.50 . 02 CPT . 828060 Specimen Comment: A courtesy copy of this report has been sent to [phone] Specimen Comment: Report sent to / Performed at: 01 [facility] [address] [place] [address] [address], [place] [id number] MD Bernardo Martinez MD Phone: [phone] Performed at: [address] [address] [place] [id number] MD Devin Carter MD Phone: [phone]
== END 2020-08-28 17:35 | DRG 640 ==
LOC: M.ERS 11:36 → M.TBA-ER 14:23 → M.3W 14:23
PROVIDERS: Nurse Practitioner Family; ADMIT Internal Medicine; ATTEND Internal Medicine
PROC: 0D568ZZ Destruction of Stomach, Via Natural or Artificial Opening Endoscopic (ICD-10-PCS; principal; 2020-08-27)
PROC: 0DB68ZZ Excision of Stomach, Via Natural or Artificial Opening Endoscopic (ICD-10-PCS; principal; 2020-08-27)
DX: E86.0 Dehydration (principal); E43 Unspecified severe protein-calorie malnutrition; K25.4 Chronic or unspecified gastric ulcer with hemorrhage; Z20.822 Contact with and (suspected) exposure to COVID-19; M06.9 Rheumatoid arthritis, unspecified; K59.09 Other constipation; K21.9 Gastro-esophageal reflux disease without esophagitis; J45.909 Unspecified asthma, uncomplicated; Z96.642 Presence of left artificial hip joint; E87.1 Hypo-osmolality and hyponatremia; K74.60 Unspecified cirrhosis of liver; R33.9 Retention of urine, unspecified; I95.1 Orthostatic hypotension; E03.9 Hypothyroidism, unspecified; K31.7 Polyp of stomach and duodenum; D50.9 Iron deficiency anemia, unspecified; K44.9 Diaphragmatic hernia without obstruction or gangrene; Z95.1 Presence of aortocoronary bypass graft; I25.2 Old myocardial infarction; Z95.5 Presence of coronary angioplasty implant and graft; Z87.81 Personal history of (healed) traumatic fracture; Z88.6 Allergy status to analgesic agent; Z88.0 Allergy status to penicillin; Z88.2 Allergy status to sulfonamides; Z88.8 Allergy status to other drugs, medicaments and biological substances; Z87.891 Personal history of nicotine dependence; Z87.11 Personal history of peptic ulcer disease; Z68.21 Body mass index [BMI] 21.0-21.9, adult

== ENCOUNTER → 2020-09-25 | Outpatient (CLI) | payer MEDICARE, OTHER ==
[~2020-09-25] MED LIST changes: +PAIN RELIEF325 MG PO; +PROTONIX40 M2 PO; +VOLTAREN GEL 1100 G1 TOP
[2020-09-25 11:50] LABS: BUN 13 mg/dL (7-18)
== END ==
LOC: M.CT 10:00
PROVIDERS: ATTEND Family Medicine
DX: J18.9 Pneumonia, unspecified organism (principal); I15.9 Secondary hypertension, unspecified; K44.9 Diaphragmatic hernia without obstruction or gangrene; R91.8 Other nonspecific abnormal finding of lung field

== ENCOUNTER 2020-09-26 19:30 | Inpatient (IN) | payer MEDICARE, OTHER ==
[~2020-09-26] VITALS: Ht 124.5 cm; Wt 40.1 kg
[~2020-09-26 19:30] MED LIST changes: -PAIN RELIEF325 MG PO
[2020-09-26] MEDS ORDERED: PAIN RELIEF325 MG PO (19:52)
[2020-09-26 20:17] LABS: HEMATOCRIT 28.8 % (37.0-47.0); HEMOGLOBIN 8.6 gm/dL (12.0-15.0); MCHC 29.7 g/dL (28.0-37.0); MCV 74.1 fL (80.0-100.0); MPV 6.9 fl. (7.2-11.1); NUCLEATED RBCS 0 /100WBC; PLATELET COUNT* 329 thou/uL (150-400); RBC 3.89 mil/uL (4.20-5.00); RDW-CV 21.6 % (10.5-14.5); WBC 6.1 thou/uL (4.0-11.0)
[2020-09-26 20:27] LABS: CALCIUM 8.2 mg/dL (8.5-10.1); CREATININE 1.3 mg/dL (0.6-1.3); POTASSIUM 4.7 mmol/L (3.5-5.1)
[2020-09-26 20:28] LABS: PROTIME 10.8 Seconds (9.20-11.50)
[2020-09-26 20:31] LABS: ALBUMIN 2.3 g/dL (3.4-5.0); MAGNESIUM 1.8 mg/dL (1.8-2.4); TOTAL BILIRUBIN 0.2 mg/dL (<0.1-1.0)
[2020-09-26 20:43] LABS: BE 0.4 mmol/L (-2 to +3)
[2020-09-26 20:55] LABS: ABSOLUTE EOSINOPHILS 0.1 thou/uL (0.0-0.7); ABSOLUTE LYMPHOCYTES 0.4 thou/uL (0.8-5.3); ABSOLUTE MONOCYTES 0.1 thou/uL (0.0-1.2); ABSOLUTE NEUTROPHILS 5.6 thou/uL (1.6-8.1); ANISOCYTOSIS 2+; HYPOCHROMASIA 2+; MICROCYTES 1+; PLATELET ESTIMATE ADEQUATE; POIKILOCYTOSIS 2+
[2020-09-26 20:56] LABS: OVALOCYTES 1+; SCHISTOCYTES 1+
[2020-09-26 22:53] VITALS: BP 141/72
[2020-09-26 23:00] VITALS: BP 156/75
[2020-09-27 04:08] VITALS: BP 142/75
[2020-09-27 08:00] VITALS: BP 139/77
[2020-09-27 12:00] VITALS: BP 104/53
[2020-09-27 16:00] VITALS: BP 109/55
[2020-09-27 20:00] VITALS: BP 132/62
[2020-09-28] VITALS: BP 145/79
[2020-09-28 04:11] LABS: HEMATOCRIT 26.1 % (37.0-47.0); HEMOGLOBIN 7.7 gm/dL (12.0-15.0); MCH 22.1 pg (26.0-34.0); MCHC 29.3 g/dL (28.0-37.0); MCV 75.6 fL (80.0-100.0); MPV 6.8 fl. (7.2-11.1); RBC 3.46 mil/uL (4.20-5.00); WBC 7.5 thou/uL (4.0-11.0)
[2020-09-28 04:36] LABS: ALBUMIN 2.2 g/dL (3.4-5.0); CALCIUM 7.6 mg/dL (8.5-10.1); MAGNESIUM 1.7 mg/dL (1.8-2.4); TOTAL BILIRUBIN 0.1 mg/dL (<0.1-1.0)
[2020-09-28 04:57] LABS: URINE BILIRUBIN NEGATIVE (Negative); URINE BLOOD TRACE (Negative); URINE CLARITY CLEAR; URINE COLOR YELLOW; URINE GLUCOSE-RANDOM NEGATIVE (Negative); URINE KETONES NEGATIVE (Negative); URINE LEUKOCYTES-REFLEX NEGATIVE (Negative); URINE NITRITE-REFLEX NEGATIVE (Negative); URINE PROTEIN NEGATIVE (Negative); URINE UROBILINOGEN 0.2 E.U./dl (0.2-1.0)
[2020-09-28 05:39] VITALS: BP 166/99
[2020-09-28 08:00] VITALS: BP 148/69
--- NOTE | 2020-09-28 17:30 | EKG ---
[place] [address] ELECTROCARDIOGRAM REPORT Name: HOSSEIN REDD Room: [address] ADM IN .R.#: [id number] Admission: 09/26/20 Attend Phys: Lopez Hernandez, Discharge: Date of : 33 Date of Service: 09/26/201933 Report #: [id number] THIS REPORT FOR: //name// [facility] ED Test Date: 2020-09-26 Test Time: 19:34:43 Pat Name: HOSSEIN REDD Department: Room: 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1935 Requested By: Marleny Robledo Order Number: [id number] MD: Julio C Love Measurements Intervals [place] Rate: 79 P: 11 MS: 151 QRS: -30 QRSD: 89 T: 9 QT: 395 QTc: 453 Interpretive Statements Sinus rhythm Left axis deviation Consider anterior infarct Baseline wander in lead(s) II,III,aVF,V5 Compared to ECG 08/25/2020 11:44:17 Atrial premature complex(es) no longer present Myocardial infarct finding still present Electronically Signed On 09-28-2020 17:30:39 CDT by Julio C Love [email or web address] <ELECTRONICALLY SIGNED> By: Julio C Love MD, [facility] 09/28/20 1730 33 33 Julio C Love MD, [facility] /EPI
[2020-09-29 02:02] VITALS: BP 154/67
[2020-09-29 06:57] LABS: HEMATOCRIT 29.1 % (37.0-47.0); HEMOGLOBIN 8.6 gm/dL (12.0-15.0); MCH 21.4 pg (26.0-34.0); MCHC 29.5 g/dL (28.0-37.0); MCV 72.6 fL (80.0-100.0); MPV 6.8 fl. (7.2-11.1); RBC 4.01 mil/uL (4.20-5.00); RDW-CV 21.8 % (10.5-14.5)
[2020-09-29 07:19] LABS: ALBUMIN 2.5 g/dL (3.4-5.0); CALCIUM 7.6 mg/dL (8.5-10.1); CREATININE 0.9 mg/dL (0.6-1.3); MAGNESIUM 1.8 mg/dL (1.8-2.4); TOTAL BILIRUBIN 0.2 mg/dL (<0.1-1.0); TOTAL PROTEIN 6.5 g/dL (6.4-8.2)
[2020-09-29 08:00] VITALS: BP 149/74
[2020-09-29 12:00] VITALS: BP 199/87
--- NOTE | 2020-09-29 13:03 | EKG ---
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 : 1935 Requested By: Regis Gant Order Number: [id number] Delfina MD: Julio C Love Measurements Intervals [place] Rate: 88 P: 33 [place]: 154 QRS: -27 QRSD: 97 T: 10 QT: 361 QTc: 437 Interpretive Statements Sinus rhythm Atrial premature complexes Borderline left axis deviation Compared to ECG 09/26/2020 19:34:43 Atrial premature complex(es) now present Myocardial infarct finding no longer present Electronically Signed On 09-29-2020 13:03:17 CDT by Julio C Love [email or web address] <ELECTRONICALLY SIGNED> By: Julio C Love MD, [facility] 09/29/20 1303 0658 [id number] Julio C Love MD, [facility] /EPI
[2020-09-29 16:08] VITALS: BP 102/72
[2020-09-29 19:50] VITALS: BP 138/76
[2020-09-30 00:07] VITALS: BP 119/76
[2020-09-30 04:37] VITALS: BP 125/66
[2020-09-30 05:21] LABS: HEMATOCRIT 26.5 % (37.0-47.0); HEMOGLOBIN 8.1 gm/dL (12.0-15.0); MCH 22.5 pg (26.0-34.0); MCHC 30.7 g/dL (28.0-37.0); MCV 73.4 fL (80.0-100.0); RBC 3.61 mil/uL (4.20-5.00); WBC 7.7 thou/uL (4.0-11.0)
[2020-09-30 05:43] LABS: ALBUMIN 2.4 g/dL (3.4-5.0); CALCIUM 8.2 mg/dL (8.5-10.1); CREATININE 0.9 mg/dL (0.6-1.3); POTASSIUM 3.8 mmol/L (3.5-5.1); TOTAL BILIRUBIN 0.2 mg/dL (<0.1-1.0); TOTAL PROTEIN 6.1 g/dL (6.4-8.2)
[2020-09-30 08:00] VITALS: BP 138/73
[2020-09-30] MEDS ORDERED: FENTANYL PATCH75 MCG TRANSDERM (08:42)
[2020-09-30] MEDS ORDERED: PREDNISONE 10 M10 M1 PO (08:42)
[2020-09-30] MEDS ORDERED: FOLIC ACID1 MG PO (08:42)
[2020-09-30] MEDS ORDERED: LEVALBUTER0.63 MG/3 INH (08:42)
[2020-09-30] MEDS ORDERED: ALPRAZOLAM0.5 M2 PO ×2 (08:42→16:02)
[2020-09-30] MEDS ORDERED: LEVOFLOXACIN500 MG PO (08:42)
[2020-09-30 09:32] VITALS: BP 138/73
[2020-09-30] MEDS ORDERED: LYRICA 50 MG50 MG PO (16:02)
== END 2020-09-30 12:09 | disposition home or self-care (01) | DRG 177 ==
LOC: M.ERS 19:30 → M.TBA-ER 21:31 → M.2W 21:31
PROVIDERS: Internal Medicine; Personal Emergency Response Attendant; ADMIT Internal Medicine; ATTEND Internal Medicine
PROC: 05HC33Z Insertion of Infusion Device into Left Basilic Vein, Percutaneous Approach (ICD-10-PCS; principal; 2020-09-28)
PROC: B54NZZA Ultrasonography of Left Upper Extremity Veins, Guidance (ICD-10-PCS; principal; 2020-09-28)
DX: J15.6 Pneumonia due to other Gram-negative bacteria (principal); E43 Unspecified severe protein-calorie malnutrition; J44.1 Chronic obstructive pulmonary disease with (acute) exacerbation; J44.0 Chronic obstructive pulmonary disease with (acute) lower respiratory infection; M25.511 Pain in right shoulder; M06.9 Rheumatoid arthritis, unspecified; K21.9 Gastro-esophageal reflux disease without esophagitis; K74.60 Unspecified cirrhosis of liver; R32 Unspecified urinary incontinence; R33.9 Retention of urine, unspecified; E53.8 Deficiency of other specified B group vitamins; R09.02 Hypoxemia; K59.09 Other constipation; M79.7 Fibromyalgia; I25.10 Atherosclerotic heart disease of native coronary artery without angina pectoris; N32.81 Overactive bladder; M12.811 Other specific arthropathies, not elsewhere classified, right shoulder; Z20.822 Contact with and (suspected) exposure to COVID-19; Z96.642 Presence of left artificial hip joint; Z68.25 Body mass index [BMI] 25.0-25.9, adult; I25.2 Old myocardial infarction; Z95.1 Presence of aortocoronary bypass graft; Z95.5 Presence of coronary angioplasty implant and graft; Z87.11 Personal history of peptic ulcer disease; Z79.899 Other long term (current) drug therapy; Z88.5 Allergy status to narcotic agent; Z88.0 Allergy status to penicillin; Z88.2 Allergy status to sulfonamides; Z88.8 Allergy status to other drugs, medicaments and biological substances